=== PATIENT | female | born 1935 | race Caucasian/White ===

== ENCOUNTER 2024-03-03 10:35 | Emergency (ER) | payer MEDICARE, SELFPAY ==
--- NOTE | ~2024-03-03 | XR_ITS ---
Clinical Indication: Cough PA and lateral views of the chest: Comparison: None Findings: The lungs are clear, without evidence of focal consolidation or pleural effusion. Possible COPD. Cardiomediastinal silhouette is within normal limits. Bones and soft tissues are unremarkable. Impression: Clear lungs. Possible COPD. Reviewed, dictated and finalized at location . END ENGINEER Impression: Clear lungs. Possible COPD.
[2024-03-03 10:59] VITALS: BP 138/52; PULSE 75; RESP 16; TEMP 36.4; O2SAT 96
--- NOTE | 2024-03-03 11:27 | ED.URI ---
HPI - URI/Sore Throat General Chief Complaint: Upper Respiratory Infection Stated Complaint: fever,sore throat,runny nose Time Seen by Provider: 03/03/24 11:27 Source: patient Mode of arrival: ambulatory Limitations: no limitations History of Present Illness HPI Narrative: 89 yo F presents with c/o sneezing, congestion, cough, fatigue for 4 days. Feels feverish. Some SOB with exertion. Concerned she may have pneumonia. All systems reviewed and negative except as noted above. Related Data Home Medications Medication Instructions Recorded Confirmed amlodipine 10 mg tablet 10 mg PO DAILY 03/03/24 03/03/24 atorvastatin 20 mg tablet 20 mg PO DAILY 03/03/24 03/03/24 clorazepate dipotassium 7.5 mg 7.5 mg PO TID 03/03/24 03/03/24 tablet levetiracetam 750 mg tablet 750 mg PO BID 03/03/24 03/03/24 metoprolol tartrate 50 mg tablet 50 mg PO DAILY 03/03/24 03/03/24 pyridostigmine bromide 60 mg tablet 120 mg PO TID 03/03/24 03/03/24 Allergies Allergy/AdvReac Type Severity Reaction Status Date / Time Sulfa (Sulfonamide Allergy Severe Anaphylactic Verified 03/03/24 11:12 Antibiotics) Shock Iodinated Contrast Media Allergy Unknown Unknown Verified 03/03/24 11:12 Review of Systems Review of Systems: CONSTITUTIONAL: Denies fever, chills, or sweats. EYES: Denies visual changes, redness, or discharge. ENT: Reports rhinorrhea, congestion. Denies sore throat, or otalgia. CARDIOVASCULAR: Denies chest pain, palpitations, or edema. RESPIRATORY: reports cough and dyspnea with exertion. GASTROINTESTINAL: Denies abdominal pain, nausea, vomiting, or diarrhea. GENITOURINARY: Denies dysuria or hematuria. SKIN: Denies rash or itching. MUSCULOSKELETAL: Denies back pain, joint pain, or myalgia. NEUROLOGIC: Denies headache, numbness, or weakness. PSYCHIATRIC: Denies anxiety or depression. All other systems reviewed are negative, except as documented in HPI. PMFSH Comments At time of signature, agree with nursing past medical, surgical, social and family history. There is no relevant family history pertinent to the presenting complaint. Exam Narrative: GENERAL: This is a well-nourished, well-developed patient, in no apparent distress. HEAD: normocephalic, atraumatic. EYES: PERRL. Sclera clear/white. Vision is grossly intact. EARS: External ears normal, auditory canals clear and without drainage, TMs normal without perforation. Hearing grossly intact. NOSE: External nose normal with mild congestion, clear nasal drainage THROAT: Mucous membranes moist, posterior pharynx clear. NECK: Neck supple, non-tender without lymphadenopathy, masses or thyromegaly. CARDIOVASCULAR: Regular rate and rhythm without murmurs, gallops, or rubs. RESPIRATORY: mildly decreased throughout all lung nash. Breath sounds equal bilaterally. No wheezes, rales, or rhonchi. SKIN: warm, Dry, intact with no suspicious lesions or rash, good texture and turgor. NEURO: awake, alert, and oriented to person, place and time. There were no obvious focal neurologic abnormalities. EXTREMITIES: No joint tenderness, effusion, or edema noted. Course Course Level of Care: Express Care Visit Vital Signs Vital signs: Vital Signs Temperature 36.4 C L 03/03/24 10:59 Pulse Rate 75 03/03/24 10:59 Respiratory Rate 16 03/03/24 10:59 Blood Pressure 138/52 L 03/03/24 10:59 Pulse Oximetry 96 03/03/24 10:59 Oxygen Delivery Room Air 03/03/24 10:59 Temperature 36.4 C L 03/03/24 10:59 Pulse Rate 75 03/03/24 10:59 Respiratory Rate 16 03/03/24 10:59 Blood Pressure 138/52 L 03/03/24 10:59 Pulse Oximetry 96 03/03/24 10:59 Oxygen Delivery Room Air 03/03/24 10:59 Reviewed MDM - URI/Sore Throat MDM Narrative Medical decision making narrative: chest x-ray negative for pneumonia. Patient well-appearing, no respiratory distress. Will treat patient with antibiotic due to comorbidities. Patient agrees with plan of care. Patient is aware of diagnosis, understands and agrees to treatment plan. Anticipatory guidance given. Patient agrees to follow-up as directed and is aware of reasons to seek care at the emergency department. Portions of this record may have been created with voice recognition software Differential Diagnosis Differential diagnosis: Likely upper respiratory infection, sinusitis, viral infection and influenza Imaging Data My impression: Agree with radiologist Radiologist's impression: Clinical Indication: Cough PA and lateral views of the chest: Comparison: None Findings: The lungs are clear, without evidence of focal consolidation or pleural effusion. Possible COPD. Cardiomediastinal silhouette is within normal limits. Bones and soft tissues are unremarkable. Impression: Clear lungs. Possible COPD. Discharge Plan Discharge Clinical Impression: Upper respiratory infection with cough and congestion Patient Disposition: Home, Self-Care Condition: Stable Instructions: Antibiotic Form, Upper Respiratory Infection (ED) Additional Instructions: Your chest x-ray was negative for pneumonia. The radiologist did mention on your chest x-ray that you have possible COPD. Discuss this further with your primary care physician. Take antibiotic as prescribed until gone. Taking [id number] medication to treat her symptoms such as Nasonex DM. Drink plenty of water and rest. Place a cool-mist humidifier in bedroom where you sleep. Follow-up with your primary care physician if symptoms are not improving. Prescriptions: New doxycycline hyclate 100 mg capsule 100 mg PO BID 7 Days Qty: 14 0RF No Action atorvastatin 20 mg tablet 20 mg PO DAILY amlodipine 10 mg tablet 10 mg PO DAILY pyridostigmine bromide 60 mg tablet 120 mg PO TID metoprolol tartrate 50 mg tablet 50 mg PO DAILY levetiracetam 750 mg tablet 750 mg PO BID clorazepate dipotassium 7.5 mg tablet 7.5 mg PO TID Follow-up/Referrals: PHYSICIAN NOT ON STAFF,NONSTAFF [Primary Care Provider] - Time of Disposition: 12:08
== END 2024-03-03 12:37 | disposition home or self-care (01) ==
PROVIDERS: Emergency Provider Nurse Practitioner Family
DX: J06.9 Acute upper respiratory infection, unspecified (principal); R05.9 Cough, unspecified; E78.00 Pure hypercholesterolemia, unspecified; I10 Essential (primary) hypertension; G70.00 Myasthenia gravis without (acute) exacerbation; Z85.3 Personal history of malignant neoplasm of breast; Z90.12 Acquired absence of left breast and nipple; Z86.73 Personal history of transient ischemic attack (TIA), and cerebral infarction without residual deficits
CPT/HCPCS: 71046; 99203; G0463

== ENCOUNTER 2024-12-27 18:11 | Inpatient (IN) | payer MEDICARE, SELFPAY ==
[2024-12-27] VITALS (39 sets, daily range): BP systolic 122–172; BP diastolic 50–85; PULSE 75–93; RESP 13–34; TEMP 36.8–37.3; O2SAT 95–100; BMI 25.5
--- NOTE | ~2024-12-27 | CT_ITS ---
CT HEAD NON-CONTRAST Clinical History: weakness, fall 2 days ago, [place] Comparison: None Technique: Unenhanced axial images skull base to vertex Coronal, sagittal reformats CT images acquired with automatic exposure control for dose reduction DLP: 605 mGy-cm Findings: Mild white matter changes, consistent with chronic microvascular ischemic disease. Sulci, ventricles: Unremarkable. No intracerebral hemorrhage. No evidence acute territorial infarct. No mass effect, midline shift. Bony calvarium intact. Visualized paranasal sinuses: Clear. Mastoid air cells: Clear. IMPRESSION: 1. No acute intracranial findings. Reviewed, dictated and finalized at location R.
--- NOTE | ~2024-12-27 | XR_ITS ---
Examination: XR chest 2V Clinical History: weakness, fevers Comparison: 03/03/2024 Technique: PA and Lateral Findings: Cardiomediastinal silhouette normal size and configuration. Lungs clear. Hyperinflation. No acute bony abnormality. IMPRESSION: 1. No acute cardiopulmonary findings. Reviewed, dictated and finalized at location R.
--- NOTE | ~2024-12-27 | US_ITS ---
Clinical History: CVA with right hemiparesis Examination: US carotid duplex BI Comparison: None Technique: Grayscale, color, duplex/spectral Doppler sonography carotid and vertebral arteries. Distal CCA and Peak ICA systolic velocities provided. Society of Radiologists in Ultrasound (SRU) consensus criteria utilized, indirectly assessing stenosis by velocities. Findings: Mild plaque Right side: CCA - 123 cm/sec. ICA - 108 cm/sec. ICA/CCA - 0.9 Left Side: CCA - 78 cm/sec. ICA - 80 cm/sec. ICA/CCA - 1.0 Normal antegrade flow measured bilateral vertebral arteries. IMPRESSION: 1. No hemodynamically significant ICA stenosis (i.e., if any stenosis, less than 50%). 2. Normal bilateral antegrade vertebral artery flow. Stenosis measured by Society of Radiologists in Ultrasound (SRU) criteria. Reviewed, dictated and finalized at location R. IMPRESSION: 1. No hemodynamically significant ICA stenosis (i.e., if any stenosis, less th an 50%). 2. Normal bilateral antegrade vertebral artery flow. Stenosis measured by Society of Radiologists in Ultrasound (SRU) criteria.
--- NOTE | 2024-12-27 18:20 | ECG_ITS ---
Test Date: 2024-12-27 18:29:23 Measurements Intervals Ker[place] Rate: 89 P: 33 CO: 141 QRS: 38 QRSD: 78 T: 36 QT: 338 QTc: 412 Interpretive Statements SINUS RHYTHM No previous ECG available for comparison Electronically Signed On 12-27-2024 20:27:43 CDT by Karey Franco M.D.
--- NOTE | 2024-12-27 18:54 | ED.WEAKNESS ---
HPI - Weakness General Chief complaint: Weakness <SAARH Hemphill Last Filed: 12/27/24 22:42> Stated complaint: weak, chills, fever <Ely Ford PA-C - Last Filed: 12/27/24 22:42> Time Seen by Provider: 12/27/24 18:15 <SARAH Hemphill Last Filed: 12/27/24 22:42> Source: patient <SARAH Hemphill Last Filed: 12/27/24 22:42> Mode of arrival: EMS <SARAH Hemphill Last Filed: 12/27/24 22:42> Limitations: no limitations <SARAH Hemphill Last Filed: 12/27/24 22:42> History of Present Illness HPI Narrative: Patient is an 89-year-old female who presents the ED via EMS with report of weakness. Patient reports she received her influenza vaccination last week at her PCP's office. Had been feeling fine initially, but began feeling increasingly weak over the past couple of days. States she feels as though she could not ambulate at times because her legs were so weak. She did have a fall 2 days ago. Denied injuring herself, but did slightly hit her head. Denied LOC. also reports having fever up to 101? F at home over the past 2 days and a rash with blisters across her left upper chest/neck. Has been taking Tylenol for the fever. Denies abdominal pain, nausea, vomiting, chest pain, difficulty breathing. <Ely Ford PA-C - Last Filed: 12/27/24 22:42> Related Data Home medications: Home Medications ?Medication ?Instructions ?Recorded ?Confirmed ?Last Taken ?Type amlodipine 10 mg tablet 10 mg PO DAILY 03/03/24 12/27/24 Unknown History atorvastatin 20 mg tablet 20 mg PO DAILY 03/03/24 12/27/24 Unknown History clorazepate dipotassium 7.5 mg 7.5 mg PO TID 03/03/24 12/27/24 Unknown History tablet levetiracetam 750 mg tablet 750 mg PO BID 03/03/24 12/27/24 Unknown History metoprolol tartrate 50 mg tablet 50 mg PO DAILY 03/03/24 12/28/24 Unknown History pyridostigmine bromide 60 mg tablet 120 mg PO TID 03/03/24 12/27/24 Unknown History calcium 500 mg (as 1 tablet PO DAILY 12/27/24 12/28/24 Unknown History carbonate)-vitamin D3 10 mcg (400 unit) tablet (O[place] Calcium-Vitamin D3) loratadine 10 mg capsule (Allergy 10 mg PO DAILY 12/28/24 12/28/24 Unknown History Relief (loratadine)) omeprazole 20 mg capsule,delayed 20 mg PO DAILY 12/28/24 12/28/24 Unknown History release <Ely Ford PA-C - Last Filed: 12/27/24 22:42> Allergies/Adverse reactions: Allergies Allergy/AdvReac Type Severity Reaction Status Date / Time Sulfa (Sulfonamide Allergy Severe Anaphylactic Verified 12/28/24 04:59 Antibiotics) Shock Iodinated Contrast Media Allergy Unknown Unknown Verified 12/28/24 04:59 <Ely Ford PA-C - Last Filed: 12/27/24 22:42> Review of Systems Review of Systems: All systems reviewed & are unremarkable except as noted in HPI. <Ely Ford PA-C - Last Filed: 12/27/24 22:42> All systems reviewed & are unremarkable except as noted in HPI and below <Ely Ford PA-C - Last Filed: 12/27/24 22:42> [facility] Past Medical History Medical History: Medical History (Updated 12/28/24 @ 02:31 by Micaela Felder APRN) Anxiety Seizure disorder CVA (cerebral vascular accident) Breast cancer Myasthenia gravis Hyperlipidemia Hypertension <SARAH Hemphill Last Filed: 12/27/24 22:42> Surgical History Surgical History: Surgical History (Updated 12/28/24 @ 02:11 by Micaela Felder APRN) History of tonsillectomy and adenoidectomy H/O: hysterectomy History of cataract extraction History of appendectomy H/O mastectomy Left breast <Ely Ford PA-C - Last Filed: 12/27/24 22:42> Family History Family History: Family History Father Acute myocardial infarction Mother Acute myocardial infarction Congestive heart failure Diabetes mellitus Hypertension Daughter Colon cancer <Ely Ford PA-C - Last Filed: 12/27/24 22:42> Social History Social History: Social History (Updated 12/28/24 @ 02:12 by Micaela Felder APRN) Social History: She lives home alone. She had 1 adopted daughter and 1 biological son and both of them have passed in their 40s. Code status: Full code Smoking status: Never smoker Alcohol intake: never Substance use: never Lack of Transportation: No Lack of Food: Never True Current Housing: I Have Housing Concerned About Future Housing: No Difficulty Paying Gas/Electric Bills: No Difficulty Paying for Meds: No Currently Unemployed: No Education: High School Diploma/GED Difficulty w/ Childcare or Family Care: No Spiritual care concerns: No <SARAH Hemphill Last Filed: 12/27/24 22:42> Exam Narrative: GENERAL: Elderly, well-nourished, non-toxic, in no acute distress. HEAD: Normocephalic, atraumatic. EYES: PERRL/EOMI, conjunctiva clear NECK: Erythema with sharply demarcated borders to L sided neck, above clavicle, extending into L submandibular region and to L ear. Small scattered vesicular lesions. Focal TTP. No active drainage ENT: L ear pinna is inflamed and erythematous. No vesicles noted within L EAC. No Mckoy sign. RESPIRATORY: Airway patent, respirations nonlabored. Clear to auscultation bilaterally, no rales, rhonchi, wheezing. CARDIOVASCULAR: Regular rate and rhythm without murmurs, rubs, or gallops. MUSCULOSKELETAL: Moves all extremities. No gross deformities. SKIN: Warm, dry, normal color. NEURO: A&O X3. Speech clear. Cranial nerves II-XII grossly intact. Steady gait. No ataxic movements. No focal deficits. PSYCHIATRIC: Appropriate mood and affect. Normal interaction. <Ely Ford PA-C - Last Filed: 12/27/24 22:42> Course [facility]/PA Physician Supervision This visit was performed by both a physician and an APC. I performed all aspects of the MDM as documented. <Jerome Simon MD - Last Filed: 12/28/24 09:06> Vital Signs Vital signs: Vital Signs Pulse Rate 92 12/27/24 18:12 Respiratory Rate 22 H 12/27/24 18:12 Blood Pressure 154/61 H 12/27/24 18:12 Pulse Oximetry 97 12/27/24 18:12 Oxygen Delivery Room Air 12/27/24 18:12 Temperature 97.6 F 12/28/24 05:27 Pulse Rate 72 12/28/24 08:51 Respiratory Rate 20 12/28/24 05:27 Blood Pressure 122/44 L 12/28/24 05:27 Pulse Oximetry 97 12/28/24 05:27 Oxygen Delivery Room Air 12/27/24 23:58 <Ely Ford PA-C - Last Filed: 12/27/24 22:42> Vital Signs Pulse Rate 92 12/27/24 18:12 Respiratory Rate 22 H 12/27/24 18:12 Blood Pressure 154/61 H 12/27/24 18:12 Pulse Oximetry 97 12/27/24 18:12 Oxygen Delivery Room Air 12/27/24 18:12 Temperature 97.6 F 12/28/24 05:27 Pulse Rate 72 12/28/24 08:51 Respiratory Rate 20 12/28/24 05:27 Blood Pressure 122/44 L 12/28/24 05:27 Pulse Oximetry 97 12/28/24 05:27 Oxygen Delivery Room Air 12/27/24 23:58 <Jerome Simon MD - Last Filed: 12/28/24 09:06> MDM - Weakness MDM Narrative Medical decision making narrative: Rash on left-sided neck on exam appears consistent with herpes zoster. Will treat for such. Started on valacyclovir in the ED. Laboratory studies with marked leukocytosis of 20.8. Neutrophil predominance. 4% bands. CMP with sodium of 127. No records to compare to. Fluids initiated. Lactic acid within normal range at 1.4. Kidney function is stable. Otherwise stable electrolytes. EKG without ischemic changes. Troponin undetectable. Viral swabs are negative. UA with positive nitrate, but without other significant signs of infection. CT brain is clear. Chest x-ray is clear. Given marked leukocytosis, will also cover for possible superimposed cellulitic infection with cefazolin. Blood cultures obtained. Will admit to hospitalist service for continued evaluation of shingles, cellulitis, weakness. Discussed case with Micaela Felder [facility] hospitalist, accepted patient for admission. Patient in agreement. <Ely Ford PA-C - Last Filed: 12/27/24 22:42> Medical Records Attestation: I reviewed the patient's medical records. <Ely Ford PA-C - Last Filed: 12/27/24 22:42> Lab Data Attestation: I reviewed the patient's lab results. <Ely Ford PA-C - Last Filed: 12/27/24 22:42> Result diagrams: 12/27/24 18:44 12/28/24 05:03 <SARAH Hemphill Last Filed: 12/27/24 22:42> Labs: Lab Results 12/27/24 12/27/24 12/27/24 Range/Units 18:44 18:44 18:44 WBC 20.8 H (4.5-10.0) K/mm3 RBC 4.31 (4.2-5.4) M/mm3 Hgb 14.1 (12.0-15.0) g/dL Hct 41.3 (37.0-47.0) % MCV 95.8 (80-100) fl MCH 32.7 (26-34) pg MCHC 34.1 (32-36) g/dl RDW 12.6 (11.5-14.5) % Plt Count 215 (150-375) k/mm3 MPV 9.2 (7.4-10.4) fl Immature Gran % (Auto) Not Reportable Neut % (Auto) Not Reportable Lymph % (Auto) Not Reportable [place] % (Auto) Not Reportable Eos % (Auto) Not Reportable Baso % (Auto) Not Reportable Lymph # (Auto) Not Reportable [place] # (Auto) Not Reportable Eos # (Auto) Not Reportable Baso # (Auto) Not Reportable Abs Immat Gran (auto) Not Reportable Absolute Neuts (auto) Not Reportable Absolute Nucleated RBC Not Reportable Total Counted 100 Neutrophils % (Manual) 86 H (46-73) % Band Neutrophils % 4 (0-6) % Lymphocytes % (Manual) 5.0 L (18-44) % Monocytes % (Manual) 5 (3-9) % Nucleated RBC % Not Reportable Abs Neuts (Manual) 18.72 H (1.3-6.7) K/mm3 Abs Lymphs (Manual) 1.04 L (1.1-4.5) K/mm3 Abs Monocytes (Manual) 1.04 H (0.1-0.90) K/mm3 Platelet Estimate Adequate (Adequate) Schistocytes None seen PT 12.9 (11.1-14.7) Seconds INR 1.0 APTT 24.7 (22.3-36.8) Seconds Sodium Cancelled 127 L Potassium Cancelled 4.1 Chloride Cancelled Carbon Dioxide Anion Gap BUN Creatinine Estim Creat Clear Calc Estimated GFR Glucose Lactic Acid (0.7-2.0) mmol/L Calcium Total Bilirubin AST ALT Alkaline Phosphatase Troponin I (0.000-0.034) ng/mL Total Protein Albumin Urine Color (Yellow) Urine Appearance (Clear) Urine pH (5.0-9.0) Ur Specific [place] (1.001-1.035) Urine Protein (Negative) mg/dL Urine Glucose (UA) (Negative) mg/dL Urine Ketones (Negative) mg/dL Ur Blood (Man) (Negative) Urine Nitrate (Negative) Urine Bilirubin (Negative) Urine Urobilinogen (<2.0) mg/dL Add Ur Microanalysis Leukocyte Esterase Rfl (Negative) JEN/UL Urine RBC (0-2) /hpf Urine WBC (0-3) /hpf Ur Squamous Epith Cells (Few) /hpf Urine Bacteria /hpf Urine Casts Influenza A (RT-PCR) (Negative) Influenza B (RT-PCR) (Negative) RSV (RT-PCR) (Negative) SARS-CoV-2 RNA (RT-PCR) (Negative) 12/27/24 12/27/24 12/27/24 Range/Units 18:44 18:44 18:44 WBC (4.5-10.0) K/mm3 RBC (4.2-5.4) M/mm3 Hgb (12.0-15.0) g/dL Hct (37.0-47.0) % MCV (80-100) fl MCH (26-34) pg MCHC (32-36) g/dl RDW (11.5-14.5) % Plt Count (150-375) k/mm3 MPV (7.4-10.4) fl Immature Gran % (Auto) Neut % (Auto) Lymph % (Auto) [place] % (Auto) Eos % (Auto) Baso % (Auto) Lymph # (Auto) [place] # (Auto) Eos # (Auto) Baso # (Auto) Abs Immat Gran (auto) Absolute Neuts (auto) Absolute Nucleated RBC Total Counted Neutrophils % (Manual) (46-73) % Band Neutrophils % (0-6) % Lymphocytes % (Manual) (18-44) % Monocytes % (Manual) (3-9) % Nucleated RBC % Abs Neuts (Manual) (1.3-6.7) K/mm3 Abs Lymphs (Manual) (1.1-4.5) K/mm3 Abs Monocytes (Manual) (0.1-0.90) K/mm3 Platelet Estimate (Adequate) Schistocytes PT (11.1-14.7) Seconds INR APTT (22.3-36.8) Seconds Sodium Potassium Chloride 100 Carbon Dioxide Cancelled 25 Anion Gap Cancelled 2 L BUN Cancelled Creatinine Estim Creat Clear Calc Estimated GFR Glucose Lactic Acid (0.7-2.0) mmol/L Calcium Total Bilirubin AST ALT Alkaline Phosphatase Troponin I (0.000-0.034) ng/mL Total Protein Albumin Urine Color (Yellow) Urine Appearance (Clear) Urine pH (5.0-9.0) Ur Specific [place] (1.001-1.035) Urine Protein (Negative) mg/dL Urine Glucose (UA) (Negative) mg/dL Urine Ketones (Negative) mg/dL Ur Blood (Man) (Negative) Urine Nitrate (Negative) Urine Bilirubin (Negative) Urine Urobilinogen (<2.0) mg/dL Add Ur Microanalysis Leukocyte Esterase Rfl (Negative) JEN/UL Urine RBC (0-2) /hpf Urine WBC (0-3) /hpf Ur Squamous Epith Cells (Few) /hpf Urine Bacteria /hpf Urine Casts Influenza A (RT-PCR) (Negative) Influenza B (RT-PCR) (Negative) RSV (RT-PCR) (Negative) SARS-CoV-2 RNA (RT-PCR) (Negative) 12/27/24 12/27/24 12/27/24 Range/Units 18:44 18:44 18:44 WBC (4.5-10.0) K/mm3 RBC (4.2-5.4) M/mm3 Hgb (12.0-15.0) g/dL Hct (37.0-47.0) % MCV (80-100) fl MCH (26-34) pg MCHC (32-36) g/dl RDW (11.5-14.5) % Plt Count (150-375) k/mm3 MPV (7.4-10.4) fl Immature Gran % (Auto) Neut % (Auto) Lymph % (Auto) [place] % (Auto) Eos % (Auto) Baso % (Auto) Lymph # (Auto) [place] # (Auto) Eos # (Auto) Baso # (Auto) Abs Immat Gran (auto) Absolute Neuts (auto) Absolute Nucleated RBC Total Counted Neutrophils % (Manual) (46-73) % Band Neutrophils % (0-6) % Lymphocytes % (Manual) (18-44) % Monocytes % (Manual) (3-9) % Nucleated RBC % Abs Neuts (Manual) (1.3-6.7) K/mm3 Abs Lymphs (Manual) (1.1-4.5) K/mm3 Abs Monocytes (Manual) (0.1-0.90) K/mm3 Platelet Estimate (Adequate) Schistocytes PT (11.1-14.7) Seconds INR APTT (22.3-36.8) Seconds Sodium Potassium Chloride Carbon Dioxide Anion Gap BUN 10 Creatinine Cancelled 0.84 Estim Creat Clear Calc Cancelled 33 Estimated GFR Cancelled Glucose Lactic Acid (0.7-2.0) mmol/L Calcium Total Bilirubin AST ALT Alkaline Phosphatase Troponin I (0.000-0.034) ng/mL Total Protein Albumin Urine Color (Yellow) Urine Appearance (Clear) Urine pH (5.0-9.0) Ur Specific [place] (1.001-1.035) Urine Protein (Negative) mg/dL Urine Glucose (UA) (Negative) mg/dL Urine Ketones (Negative) mg/dL Ur Blood (Man) (Negative) Urine Nitrate (Negative) Urine Bilirubin (Negative) Urine Urobilinogen (<2.0) mg/dL Add Ur Microanalysis Leukocyte Esterase Rfl (Negative) JEN/UL Urine RBC (0-2) /hpf Urine WBC (0-3) /hpf Ur Squamous Epith Cells (Few) /hpf Urine Bacteria /hpf Urine Casts Influenza A (RT-PCR) (Negative) Influenza B (RT-PCR) (Negative) RSV (RT-PCR) (Negative) SARS-CoV-2 RNA (RT-PCR) (Negative) 12/27/24 12/27/24 12/27/24 Range/Units 18:44 18:44 18:44 WBC (4.5-10.0) K/mm3 RBC (4.2-5.4) M/mm3 Hgb (12.0-15.0) g/dL Hct (37.0-47.0) % MCV (80-100) fl MCH (26-34) pg MCHC (32-36) g/dl RDW (11.5-14.5) % Plt Count (150-375) k/mm3 MPV (7.4-10.4) fl Immature Gran % (Auto) Neut % (Auto) Lymph % (Auto) [place] % (Auto) Eos % (Auto) Baso % (Auto) Lymph # (Auto) [place] # (Auto) Eos # (Auto) Baso # (Auto) Abs Immat Gran (auto) Absolute Neuts (auto) Absolute Nucleated RBC Total Counted Neutrophils % (Manual) (46-73) % Band Neutrophils % (0-6) % Lymphocytes % (Manual) (18-44) % Monocytes % (Manual) (3-9) % Nucleated RBC % Abs Neuts (Manual) (1.3-6.7) K/mm3 Abs Lymphs (Manual) (1.1-4.5) K/mm3 Abs Monocytes (Manual) (0.1-0.90) K/mm3 Platelet Estimate (Adequate) Schistocytes PT (11.1-14.7) Seconds INR APTT (22.3-36.8) Seconds Sodium Potassium Chloride Carbon Dioxide Anion Gap BUN Creatinine Estim Creat Clear Calc Estimated GFR > 60 Glucose Cancelled 124 H Lactic Acid (0.7-2.0) mmol/L Calcium Cancelled 9.0 Total Bilirubin Cancelled AST ALT Alkaline Phosphatase Troponin I (0.000-0.034) ng/mL Total Protein Albumin Urine Color (Yellow) Urine Appearance (Clear) Urine pH (5.0-9.0) Ur Specific [place] (1.001-1.035) Urine Protein (Negative) mg/dL Urine Glucose (UA) (Negative) mg/dL Urine Ketones (Negative) mg/dL Ur Blood (Man) (Negative) Urine Nitrate (Negative) Urine Bilirubin (Negative) Urine Urobilinogen (<2.0) mg/dL Add Ur Microanalysis Leukocyte Esterase Rfl (Negative) JEN/UL Urine RBC (0-2) /hpf Urine WBC (0-3) /hpf Ur Squamous Epith Cells (Few) /hpf Urine Bacteria /hpf Urine Casts Influenza A (RT-PCR) (Negative) Influenza B (RT-PCR) (Negative) RSV (RT-PCR) (Negative) SARS-CoV-2 RNA (RT-PCR) (Negative) 12/27/24 12/27/24 12/27/24 Range/Units 18:44 18:44 18:44 WBC (4.5-10.0) K/mm3 RBC (4.2-5.4) M/mm3 Hgb (12.0-15.0) g/dL Hct (37.0-47.0) % MCV (80-100) fl MCH (26-34) pg MCHC (32-36) g/dl RDW (11.5-14.5) % Plt Count (150-375) k/mm3 MPV (7.4-10.4) fl Immature Gran % (Auto) Neut % (Auto) Lymph % (Auto) [place] % (Auto) Eos % (Auto) Baso % (Auto) Lymph # (Auto) [place] # (Auto) Eos # (Auto) Baso # (Auto) Abs Immat Gran (auto) Absolute Neuts (auto) Absolute Nucleated RBC Total Counted Neutrophils % (Manual) (46-73) % Band Neutrophils % (0-6) % Lymphocytes % (Manual) (18-44) % Monocytes % (Manual) (3-9) % Nucleated RBC % Abs Neuts (Manual) (1.3-6.7) K/mm3 Abs Lymphs (Manual) (1.1-4.5) K/mm3 Abs Monocytes (Manual) (0.1-0.90) K/mm3 Platelet Estimate (Adequate) Schistocytes PT (11.1-14.7) Seconds INR APTT (22.3-36.8) Seconds Sodium Potassium Chloride Carbon Dioxide Anion Gap BUN Creatinine Estim Creat Clear Calc Estimated GFR Glucose Lactic Acid (0.7-2.0) mmol/L Calcium Total Bilirubin 1.0 AST Cancelled 45 H ALT Cancelled 21 Alkaline Phosphatase Cancelled Troponin I (0.000-0.034) ng/mL Total Protein Albumin Urine Color (Yellow) Urine Appearance (Clear) Urine pH (5.0-9.0) Ur Specific [place] (1.001-1.035) Urine Protein (Negative) mg/dL Urine Glucose (UA) (Negative) mg/dL Urine Ketones (Negative) mg/dL Ur Blood (Man) (Negative) Urine Nitrate (Negative) Urine Bilirubin (Negative) Urine Urobilinogen (<2.0) mg/dL Add Ur Microanalysis Leukocyte Esterase Rfl (Negative) JEN/UL Urine RBC (0-2) /hpf Urine WBC (0-3) /hpf Ur Squamous Epith Cells (Few) /hpf Urine Bacteria /hpf Urine Casts Influenza A (RT-PCR) (Negative) Influenza B (RT-PCR) (Negative) RSV (RT-PCR) (Negative) SARS-CoV-2 RNA (RT-PCR) (Negative) 12/27/24 12/27/24 12/27/24 Range/Units 18:44 18:44 18:44 WBC (4.5-10.0) K/mm3 RBC (4.2-5.4) M/mm3 Hgb (12.0-15.0) g/dL Hct (37.0-47.0) % MCV (80-100) fl MCH (26-34) pg MCHC (32-36) g/dl RDW (11.5-14.5) % Plt Count (150-375) k/mm3 MPV (7.4-10.4) fl Immature Gran % (Auto) Neut % (Auto) Lymph % (Auto) [place] % (Auto) Eos % (Auto) Baso % (Auto) Lymph # (Auto) [place] # (Auto) Eos # (Auto) Baso # (Auto) Abs Immat Gran (auto) Absolute Neuts (auto) Absolute Nucleated RBC Total Counted Neutrophils % (Manual) (46-73) % Band Neutrophils % (0-6) % Lymphocytes % (Manual) (18-44) % Monocytes % (Manual) (3-9) % Nucleated RBC % Abs Neuts (Manual) (1.3-6.7) K/mm3 Abs Lymphs (Manual) (1.1-4.5) K/mm3 Abs Monocytes (Manual) (0.1-0.90) K/mm3 Platelet Estimate (Adequate) Schistocytes PT (11.1-14.7) Seconds INR APTT (22.3-36.8) Seconds Sodium Potassium Chloride Carbon Dioxide Anion Gap BUN Creatinine Estim Creat Clear Calc Estimated GFR Glucose Lactic Acid (0.7-2.0) mmol/L Calcium Total Bilirubin AST ALT Alkaline Phosphatase 88 Troponin I < 0.012 (0.000-0.034) ng/mL Total Protein Cancelled 7.2 Albumin Cancelled 4.2 Urine Color (Yellow) Urine Appearance (Clear) Urine pH (5.0-9.0) Ur Specific [place] (1.001-1.035) Urine Protein (Negative) mg/dL Urine Glucose (UA) (Negative) mg/dL Urine Ketones (Negative) mg/dL Ur Blood (Man) (Negative) Urine Nitrate (Negative) Urine Bilirubin (Negative) Urine Urobilinogen (<2.0) mg/dL Add Ur Microanalysis Leukocyte Esterase Rfl (Negative) JEN/UL Urine RBC (0-2) /hpf Urine WBC (0-3) /hpf Ur Squamous Epith Cells (Few) /hpf Urine Bacteria /hpf Urine Casts Influenza A (RT-PCR) (Negative) Influenza B (RT-PCR) (Negative) RSV (RT-PCR) (Negative) SARS-CoV-2 RNA (RT-PCR) (Negative) 12/27/24 12/27/24 12/27/24 Range/Units 19:16 19:23 21:44 WBC (4.5-10.0) K/mm3 RBC (4.2-5.4) M/mm3 Hgb (12.0-15.0) g/dL Hct (37.0-47.0) % MCV (80-100) fl MCH (26-34) pg MCHC (32-36) g/dl RDW (11.5-14.5) % Plt Count (150-375) k/mm3 MPV (7.4-10.4) fl Immature Gran % (Auto) Neut % (Auto) Lymph % (Auto) [place] % (Auto) Eos % (Auto) Baso % (Auto) Lymph # (Auto) [place] # (Auto) Eos # (Auto) Baso # (Auto) Abs Immat Gran (auto) Absolute Neuts (auto) Absolute Nucleated RBC Total Counted Neutrophils % (Manual) (46-73) % Band Neutrophils % (0-6) % Lymphocytes % (Manual) (18-44) % Monocytes % (Manual) (3-9) % Nucleated RBC % Abs Neuts (Manual) (1.3-6.7) K/mm3 Abs Lymphs (Manual) (1.1-4.5) K/mm3 Abs Monocytes (Manual) (0.1-0.90) K/mm3 Platelet Estimate (Adequate) Schistocytes PT (11.1-14.7) Seconds INR APTT (22.3-36.8) Seconds Sodium Potassium Chloride Carbon Dioxide Anion Gap BUN Creatinine Estim Creat Clear Calc Estimated GFR Glucose Lactic Acid 1.4 (0.7-2.0) mmol/L Calcium Total Bilirubin AST ALT Alkaline Phosphatase Troponin I (0.000-0.034) ng/mL Total Protein Albumin Urine Color Yellow (Yellow) Urine Appearance Clear (Clear) Urine pH 5.5 (5.0-9.0) Ur Specific [place] 1.018 (1.001-1.035) Urine Protein Trace (Negative) mg/dL Urine Glucose (UA) Negative (Negative) mg/dL Urine Ketones 1+ H (Negative) mg/dL Ur Blood (Man) Negative (Negative) Urine Nitrate Positive H (Negative) Urine Bilirubin Negative (Negative) Urine Urobilinogen 0.2 (<2.0) mg/dL Add Ur Microanalysis Reviewed Leukocyte Esterase Rfl 2+ H (Negative) JEN/UL Urine RBC 0-2 (0-2) /hpf Urine WBC 0-5 (0-3) /hpf Ur Squamous Epith Cells None seen (Few) /hpf Urine Bacteria None seen /hpf Urine Casts 3-5 Influenza A (RT-PCR) Negative (Negative) Influenza B (RT-PCR) Negative (Negative) RSV (RT-PCR) Negative (Negative) SARS-CoV-2 RNA (RT-PCR) Negative (Negative) <Ely Ford PA-C - Last Filed: 12/27/24 22:42> Lab Results 12/27/24 12/27/24 12/27/24 Range/Units 18:44 18:44 18:44 WBC 20.8 H (4.5-10.0) K/mm3 RBC 4.31 (4.2-5.4) M/mm3 Hgb 14.1 (12.0-15.0) g/dL Hct 41.3 (37.0-47.0) % MCV 95.8 (80-100) fl MCH 32.7 (26-34) pg MCHC 34.1 (32-36) g/dl RDW 12.6 (11.5-14.5) % Plt Count 215 (150-375) k/mm3 MPV 9.2 (7.4-10.4) fl Immature Gran % (Auto) Not Reportable Neut % (Auto) Not Reportable Lymph % (Auto) Not Reportable [place] % (Auto) Not Reportable Eos % (Auto) Not Reportable Baso % (Auto) Not Reportable Lymph # (Auto) Not Reportable [place] # (Auto) Not Reportable Eos # (Auto) Not Reportable Baso # (Auto) Not Reportable Abs Immat Gran (auto) Not Reportable Absolute Neuts (auto) Not Reportable Absolute Nucleated RBC Not Reportable Total Counted 100 Neutrophils % (Manual) 86 H (46-73) % Band Neutrophils % 4 (0-6) % Lymphocytes % (Manual) 5.0 L (18-44) % Monocytes % (Manual) 5 (3-9) % Nucleated RBC % Not Reportable Abs Neuts (Manual) 18.72 H (1.3-6.7) K/mm3 Abs Lymphs (Manual) 1.04 L (1.1-4.5) K/mm3 Abs Monocytes (Manual) 1.04 H (0.1-0.90) K/mm3 Platelet Estimate Adequate (Adequate) Schistocytes None seen PT 12.9 (11.1-14.7) Seconds INR 1.0 APTT 24.7 (22.3-36.8) Seconds Sodium Cancelled 127 L Potassium Cancelled 4.1 Chloride Cancelled Carbon Dioxide Anion Gap BUN Creatinine Estim Creat Clear Calc Estimated GFR Glucose Lactic Acid (0.7-2.0) mmol/L Calcium Total Bilirubin AST ALT Alkaline Phosphatase Troponin I (0.000-0.034) ng/mL Total Protein Albumin Urine Color (Yellow) Urine Appearance (Clear) Urine pH (5.0-9.0) Ur Specific [place] (1.001-1.035) Urine Protein (Negative) mg/dL Urine Glucose (UA) (Negative) mg/dL Urine Ketones (Negative) mg/dL Ur Blood (Man) (Negative) Urine Nitrate (Negative) Urine Bilirubin (Negative) Urine Urobilinogen (<2.0) mg/dL Add Ur Microanalysis Leukocyte Esterase Rfl (Negative) JEN/UL Urine RBC (0-2) /hpf Urine WBC (0-3) /hpf Ur Squamous Epith Cells (Few) /hpf Urine Bacteria /hpf Urine Casts Influenza A (RT-PCR) (Negative) Influenza B (RT-PCR) (Negative) RSV (RT-PCR) (Negative) SARS-CoV-2 RNA (RT-PCR) (Negative) 12/27/24 12/27/24 12/27/24 Range/Units 18:44 18:44 18:44 WBC (4.5-10.0) K/mm3 RBC (4.2-5.4) M/mm3 Hgb (12.0-15.0) g/dL Hct (37.0-47.0) % MCV (80-100) fl MCH (26-34) pg MCHC (32-36) g/dl RDW (11.5-14.5) % Plt Count (150-375) k/mm3 MPV (7.4-10.4) fl Immature Gran % (Auto) Neut % (Auto) Lymph % (Auto) [place] % (Auto) Eos % (Auto) Baso % (Auto) Lymph # (Auto) [place] # (Auto) Eos # (Auto) Baso # (Auto) Abs Immat Gran (auto) Absolute Neuts (auto) Absolute Nucleated RBC Total Counted Neutrophils % (Manual) (46-73) % Band Neutrophils % (0-6) % Lymphocytes % (Manual) (18-44) % Monocytes % (Manual) (3-9) % Nucleated RBC % Abs Neuts (Manual) (1.3-6.7) K/mm3 Abs Lymphs (Manual) (1.1-4.5) K/mm3 Abs Monocytes (Manual) (0.1-0.90) K/mm3 Platelet Estimate (Adequate) Schistocytes PT (11.1-14.7) Seconds INR APTT (22.3-36.8) Seconds Sodium Potassium Chloride 100 Carbon Dioxide Cancelled 25 Anion Gap Cancelled 2 L BUN Cancelled Creatinine Estim Creat Clear Calc Estimated GFR Glucose Lactic Acid (0.7-2.0) mmol/L Calcium Total Bilirubin AST ALT Alkaline Phosphatase Troponin I (0.000-0.034) ng/mL Total Protein Albumin Urine Color (Yellow) Urine Appearance (Clear) Urine pH (5.0-9.0) Ur Specific [place] (1.001-1.035) Urine Protein (Negative) mg/dL Urine Glucose (UA) (Negative) mg/dL Urine Ketones (Negative) mg/dL Ur Blood (Man) (Negative) Urine Nitrate (Negative) Urine Bilirubin (Negative) Urine Urobilinogen (<2.0) mg/dL Add Ur Microanalysis Leukocyte Esterase Rfl (Negative) JEN/UL Urine RBC (0-2) /hpf Urine WBC (0-3) /hpf Ur Squamous Epith Cells (Few) /hpf Urine Bacteria /hpf Urine Casts Influenza A (RT-PCR) (Negative) Influenza B (RT-PCR) (Negative) RSV (RT-PCR) (Negative) SARS-CoV-2 RNA (RT-PCR) (Negative) 12/27/24 12/27/24 12/27/24 Range/Units 18:44 18:44 18:44 WBC (4.5-10.0) K/mm3 RBC (4.2-5.4) M/mm3 Hgb (12.0-15.0) g/dL Hct (37.0-47.0) % MCV (80-100) fl MCH (26-34) pg MCHC (32-36) g/dl RDW (11.5-14.5) % Plt Count (150-375) k/mm3 MPV (7.4-10.4) fl Immature Gran % (Auto) Neut % (Auto) Lymph % (Auto) [place] % (Auto) Eos % (Auto) Baso % (Auto) Lymph # (Auto) [place] # (Auto) Eos # (Auto) Baso # (Auto) Abs Immat Gran (auto) Absolute Neuts (auto) Absolute Nucleated RBC Total Counted Neutrophils % (Manual) (46-73) % Band Neutrophils % (0-6) % Lymphocytes % (Manual) (18-44) % Monocytes % (Manual) (3-9) % Nucleated RBC % Abs Neuts (Manual) (1.3-6.7) K/mm3 Abs Lymphs (Manual) (1.1-4.5) K/mm3 Abs Monocytes (Manual) (0.1-0.90) K/mm3 Platelet Estimate (Adequate) Schistocytes PT (11.1-14.7) Seconds INR APTT (22.3-36.8) Seconds Sodium Potassium Chloride Carbon Dioxide Anion Gap BUN 10 Creatinine Cancelled 0.84 Estim Creat Clear Calc Cancelled 33 Estimated GFR Cancelled Glucose Lactic Acid (0.7-2.0) mmol/L Calcium Total Bilirubin AST ALT Alkaline Phosphatase Troponin I (0.000-0.034) ng/mL Total Protein Albumin Urine Color (Yellow) Urine Appearance (Clear) Urine pH (5.0-9.0) Ur Specific [place] (1.001-1.035) Urine Protein (Negative) mg/dL Urine Glucose (UA) (Negative) mg/dL Urine Ketones (Negative) mg/dL Ur Blood (Man) (Negative) Urine Nitrate (Negative) Urine Bilirubin (Negative) Urine Urobilinogen (<2.0) mg/dL Add Ur Microanalysis Leukocyte Esterase Rfl (Negative) JEN/UL Urine RBC (0-2) /hpf Urine WBC (0-3) /hpf Ur Squamous Epith Cells (Few) /hpf Urine Bacteria /hpf Urine Casts Influenza A (RT-PCR) (Negative) Influenza B (RT-PCR) (Negative) RSV (RT-PCR) (Negative) SARS-CoV-2 RNA (RT-PCR) (Negative) 12/27/24 12/27/24 12/27/24 Range/Units 18:44 18:44 18:44 WBC (4.5-10.0) K/mm3 RBC (4.2-5.4) M/mm3 Hgb (12.0-15.0) g/dL Hct (37.0-47.0) % MCV (80-100) fl MCH (26-34) pg MCHC (32-36) g/dl RDW (11.5-14.5) % Plt Count (150-375) k/mm3 MPV (7.4-10.4) fl Immature Gran % (Auto) Neut % (Auto) Lymph % (Auto) [place] % (Auto) Eos % (Auto) Baso % (Auto) Lymph # (Auto) [place] # (Auto) Eos # (Auto) Baso # (Auto) Abs Immat Gran (auto) Absolute Neuts (auto) Absolute Nucleated RBC Total Counted Neutrophils % (Manual) (46-73) % Band Neutrophils % (0-6) % Lymphocytes % (Manual) (18-44) % Monocytes % (Manual) (3-9) % Nucleated RBC % Abs Neuts (Manual) (1.3-6.7) K/mm3 Abs Lymphs (Manual) (1.1-4.5) K/mm3 Abs Monocytes (Manual) (0.1-0.90) K/mm3 Platelet Estimate (Adequate) Schistocytes PT (11.1-14.7) Seconds INR APTT (22.3-36.8) Seconds Sodium Potassium Chloride Carbon Dioxide Anion Gap BUN Creatinine Estim Creat Clear Calc Estimated GFR > 60 Glucose Cancelled 124 H Lactic Acid (0.7-2.0) mmol/L Calcium Cancelled 9.0 Total Bilirubin Cancelled AST ALT Alkaline Phosphatase Troponin I (0.000-0.034) ng/mL Total Protein Albumin Urine Color (Yellow) Urine Appearance (Clear) Urine pH (5.0-9.0) Ur Specific [place] (1.001-1.035) Urine Protein (Negative) mg/dL Urine Glucose (UA) (Negative) mg/dL Urine Ketones (Negative) mg/dL Ur Blood (Man) (Negative) Urine Nitrate (Negative) Urine Bilirubin (Negative) Urine Urobilinogen (<2.0) mg/dL Add Ur Microanalysis Leukocyte Esterase Rfl (Negative) JEN/UL Urine RBC (0-2) /hpf Urine WBC (0-3) /hpf Ur Squamous Epith Cells (Few) /hpf Urine Bacteria /hpf Urine Casts Influenza A (RT-PCR) (Negative) Influenza B (RT-PCR) (Negative) RSV (RT-PCR) (Negative) SARS-CoV-2 RNA (RT-PCR) (Negative) 12/27/24 12/27/24 12/27/24 Range/Units 18:44 18:44 18:44 WBC (4.5-10.0) K/mm3 RBC (4.2-5.4) M/mm3 Hgb (12.0-15.0) g/dL Hct (37.0-47.0) % MCV (80-100) fl MCH (26-34) pg MCHC (32-36) g/dl RDW (11.5-14.5) % Plt Count (150-375) k/mm3 MPV (7.4-10.4) fl Immature Gran % (Auto) Neut % (Auto) Lymph % (Auto) [place] % (Auto) Eos % (Auto) Baso % (Auto) Lymph # (Auto) [place] # (Auto) Eos # (Auto) Baso # (Auto) Abs Immat Gran (auto) Absolute Neuts (auto) Absolute Nucleated RBC Total Counted Neutrophils % (Manual) (46-73) % Band Neutrophils % (0-6) % Lymphocytes % (Manual) (18-44) % Monocytes % (Manual) (3-9) % Nucleated RBC % Abs Neuts (Manual) (1.3-6.7) K/mm3 Abs Lymphs (Manual) (1.1-4.5) K/mm3 Abs Monocytes (Manual) (0.1-0.90) K/mm3 Platelet Estimate (Adequate) Schistocytes PT (11.1-14.7) Seconds INR APTT (22.3-36.8) Seconds Sodium Potassium Chloride Carbon Dioxide Anion Gap BUN Creatinine Estim Creat Clear Calc Estimated GFR Glucose Lactic Acid (0.7-2.0) mmol/L Calcium Total Bilirubin 1.0 AST Cancelled 45 H ALT Cancelled 21 Alkaline Phosphatase Cancelled Troponin I (0.000-0.034) ng/mL Total Protein Albumin Urine Color (Yellow) Urine Appearance (Clear) Urine pH (5.0-9.0) Ur Specific [place] (1.001-1.035) Urine Protein (Negative) mg/dL Urine Glucose (UA) (Negative) mg/dL Urine Ketones (Negative) mg/dL Ur Blood (Man) (Negative) Urine Nitrate (Negative) Urine Bilirubin (Negative) Urine Urobilinogen (<2.0) mg/dL Add Ur Microanalysis Leukocyte Esterase Rfl (Negative) JEN/UL Urine RBC (0-2) /hpf Urine WBC (0-3) /hpf Ur Squamous Epith Cells (Few) /hpf Urine Bacteria /hpf Urine Casts Influenza A (RT-PCR) (Negative) Influenza B (RT-PCR) (Negative) RSV (RT-PCR) (Negative) SARS-CoV-2 RNA (RT-PCR) (Negative) 12/27/24 12/27/24 12/27/24 Range/Units 18:44 18:44 18:44 WBC (4.5-10.0) K/mm3 RBC (4.2-5.4) M/mm3 Hgb (12.0-15.0) g/dL Hct (37.0-47.0) % MCV (80-100) fl MCH (26-34) pg MCHC (32-36) g/dl RDW (11.5-14.5) % Plt Count (150-375) k/mm3 MPV (7.4-10.4) fl Immature Gran % (Auto) Neut % (Auto) Lymph % (Auto) [place] % (Auto) Eos % (Auto) Baso % (Auto) Lymph # (Auto) [place] # (Auto) Eos # (Auto) Baso # (Auto) Abs Immat Gran (auto) Absolute Neuts (auto) Absolute Nucleated RBC Total Counted Neutrophils % (Manual) (46-73) % Band Neutrophils % (0-6) % Lymphocytes % (Manual) (18-44) % Monocytes % (Manual) (3-9) % Nucleated RBC % Abs Neuts (Manual) (1.3-6.7) K/mm3 Abs Lymphs (Manual) (1.1-4.5) K/mm3 Abs Monocytes (Manual) (0.1-0.90) K/mm3 Platelet Estimate (Adequate) Schistocytes PT (11.1-14.7) Seconds INR APTT (22.3-36.8) Seconds Sodium Potassium Chloride Carbon Dioxide Anion Gap BUN Creatinine Estim Creat Clear Calc Estimated GFR Glucose Lactic Acid (0.7-2.0) mmol/L Calcium Total Bilirubin AST ALT Alkaline Phosphatase 88 Troponin I < 0.012 (0.000-0.034) ng/mL Total Protein Cancelled 7.2 Albumin Cancelled 4.2 Urine Color (Yellow) Urine Appearance (Clear) Urine pH (5.0-9.0) Ur Specific [place] (1.001-1.035) Urine Protein (Negative) mg/dL Urine Glucose (UA) (Negative) mg/dL Urine Ketones (Negative) mg/dL Ur Blood (Man) (Negative) Urine Nitrate (Negative) Urine Bilirubin (Negative) Urine Urobilinogen (<2.0) mg/dL Add Ur Microanalysis Leukocyte Esterase Rfl (Negative) JEN/UL Urine RBC (0-2) /hpf Urine WBC (0-3) /hpf Ur Squamous Epith Cells (Few) /hpf Urine Bacteria /hpf Urine Casts Influenza A (RT-PCR) (Negative) Influenza B (RT-PCR) (Negative) RSV (RT-PCR) (Negative) SARS-CoV-2 RNA (RT-PCR) (Negative) 12/27/24 12/27/24 12/27/24 Range/Units 19:16 19:23 21:44 WBC (4.5-10.0) K/mm3 RBC (4.2-5.4) M/mm3 Hgb (12.0-15.0) g/dL Hct (37.0-47.0) % MCV (80-100) fl MCH (26-34) pg MCHC (32-36) g/dl RDW (11.5-14.5) % Plt Count (150-375) k/mm3 MPV (7.4-10.4) fl Immature Gran % (Auto) Neut % (Auto) Lymph % (Auto) [place] % (Auto) Eos % (Auto) Baso % (Auto) Lymph # (Auto) [place] # (Auto) Eos # (Auto) Baso # (Auto) Abs Immat Gran (auto) Absolute Neuts (auto) Absolute Nucleated RBC Total Counted Neutrophils % (Manual) (46-73) % Band Neutrophils % (0-6) % Lymphocytes % (Manual) (18-44) % Monocytes % (Manual) (3-9) % Nucleated RBC % Abs Neuts (Manual) (1.3-6.7) K/mm3 Abs Lymphs (Manual) (1.1-4.5) K/mm3 Abs Monocytes (Manual) (0.1-0.90) K/mm3 Platelet Estimate (Adequate) Schistocytes PT (11.1-14.7) Seconds INR APTT (22.3-36.8) Seconds Sodium Potassium Chloride Carbon Dioxide Anion Gap BUN Creatinine Estim Creat Clear Calc Estimated GFR Glucose Lactic Acid 1.4 (0.7-2.0) mmol/L Calcium Total Bilirubin AST ALT Alkaline Phosphatase Troponin I (0.000-0.034) ng/mL Total Protein Albumin Urine Color Yellow (Yellow) Urine Appearance Clear (Clear) Urine pH 5.5 (5.0-9.0) Ur Specific [place] 1.018 (1.001-1.035) Urine Protein Trace (Negative) mg/dL Urine Glucose (UA) Negative (Negative) mg/dL Urine Ketones 1+ H (Negative) mg/dL Ur Blood (Man) Negative (Negative) Urine Nitrate Positive H (Negative) Urine Bilirubin Negative (Negative) Urine Urobilinogen 0.2 (<2.0) mg/dL Add Ur Microanalysis Reviewed Leukocyte Esterase Rfl 2+ H (Negative) JEN/UL Urine RBC 0-2 (0-2) /hpf Urine WBC 0-5 (0-3) /hpf Ur Squamous Epith Cells None seen (Few) /hpf Urine Bacteria None seen /hpf Urine Casts 3-5 Influenza A (RT-PCR) Negative (Negative) Influenza B (RT-PCR) Negative (Negative) RSV (RT-PCR) Negative (Negative) SARS-CoV-2 RNA (RT-PCR) Negative (Negative) <Jerome Simon MD - Last Filed: 12/28/24 09:06> Imaging Data Attestation: I personally reviewed and interpreted this imaging study as follows: <Ely Ford PA-C - Last Filed: 12/27/24 22:42> Radiologist's impression: ITS Impressions Chest X-Ray 12/27/24 19:06 IMPRESSION: 1. No acute cardiopulmonary findings. Head CT 12/27/24 19:12 IMPRESSION: 1. No acute intracranial findings. <Ely Ford PA-C - Last Filed: 12/27/24 22:42> ECG Data EKG #1: Attestation: I personally reviewed and interpreted this ECG as follows: <Ely Ford PA-C - Last Filed: 12/27/24 22:42> ECG completion date: 12/27/24 <Ely Ford PA-C - Last Filed: 12/27/24 22:42> ECG completion time: 18:29 <Ely Ford PA-C - Last Filed: 12/27/24 22:42> EKG Interpretation: normal rate (89), sinus rhythm and no ST changes <SARAH Hemphill Last Filed: 12/27/24 22:42> Discharge Plan Discharge Clinical Impression: Herpes zoster of neck, Cellulitis of neck, Hyponatremia, Generalized weakness <SARAH Hemphill Last Filed: 12/27/24 22:42> Patient Disposition: Still a Patient <SARAH Hemphill Last Filed: 12/27/24 22:42> Condition: Stable <SARAH Hemphill Last Filed: 12/27/24 22:42>
[2024-12-27 18:55] LABS: Hematocrit 41.3 % (37.0-47.0); Hemoglobin 14.1 g/dL (12.0-15.0); Mean Corpuscular HGB Conc 34.1 g/dl (32-36); Mean Corpuscular Hemoglobin 32.7 pg (26-34); Mean Corpuscular Volume 95.8 fl (80-100); Platelet Count Result 215 k/mm3 (150-375); Red Blood Count 4.31 M/mm3 (4.2-5.4); White Blood Count 20.8 K/mm3 (4.5-10.0)
[2024-12-27 19:04] LABS: INR 1.0; Partial Thromboplastin Time 24.7 Seconds (22.3-36.8); Prothrombin Time 12.9 Seconds (11.1-14.7)
[2024-12-27 19:07] LABS: Alanine Aminotransferase 21 U/L (6-35); Albumin Level 4.2 g/dL (3.5-5.1); Alkaline Phosphatase 88 U/L (38-126); Anion Gap 2 mmol/L (4-12); Aspartate Amino Transferase 45 U/L (14-36); Bilirubin,Total 1.0 mg/dL (0.2-1.3); Blood Urea Nitrogen 10 mg/dL (7-17); Calcium 9.0 mg/dL (8.4-10.2); Carbon Dioxide 25 mmol/L (22-30); Chloride 100 mmol/L (98-107); Estimated CRCL calculation 33 ml/min; Estimated Glomerular Filt Rate > 60; Glucose 124 mg/dL (65-110); Potassium 4.1 mmol/L (3.4-5.0); Sodium 127 mmol/L (137-145); Total Protein 7.2 g/dL (6.3-8.2)
[2024-12-27 19:18] LABS: Band Neutrophils Percent 4 % (0-6); Lymphocytes Absolute Manual 1.04 K/mm3 (1.1-4.5); Lymphocytes Percent Manual 5.0 % (18-44); Monocytes Absolute Manual 1.04 K/mm3 (0.1-0.90); Monocytes Percent Manual 5 % (3-9); Neutrophils Absolute Manual 18.72 K/mm3 (1.3-6.7); Neutrophils Percent Manual 86 % (46-73); Total Cells Counted 100
[2024-12-27 19:19] LABS: Schistocytes None Seen
[2024-12-27 19:23] LABS: Troponin I < 0.012 ng/mL (0.000-0.034)
[2024-12-27] MEDS: SODIUM CHLORIDE 0.9% IV 1,000 ML 999 ML IV CONT (19:28)
[2024-12-27] MEDS: ceFAZolin 1 GM in SODIUM CHLORIDE 0.9% IV 50 ML 100 ML IVPB (19:38)
[2024-12-27 20:03] LABS: Influenza A QL RT-PCR Negative (Negative); Influenza B QL RT-PCR Negative (Negative); RSV RNA, RT-PCR Negative (Negative); SARS-CoV-2 RNA PCR Negative (Negative)
[2024-12-27 22:04] LABS: Add Urine Microscopic? YES; Appearance Urine Clear (Clear); Glucose Urine UA Negative (Negative); Leukocyte Esterase Ur 2+ LEU/UL (Negative); Need Manual Microscopic Reviewed; Nitrate Urine Positive (Negative); Specific Grav Ur 1.018 (1.001-1.035)
--- NOTE | 2024-12-27 23:35 | ADMGEN ---
This patient, Paige Barillas, was admitted to Medical Room 248-. Patient/family oriented to hospital policies and general routines including ID bracelet, bed and alarms, visiting hours, pain management, procedures, bathroom and other care routines, personal items, smoking policy, room service/diet, and visiting hours. Information on how to activate the Rapid Response Team has been discussed. Patient/Family are encouraged to report perceived risks to care and to ask questions if they do not understand what they are told or what they should do.
[2024-12-27] MEDS: SODIUM CHLORIDE 0.9% IV 1,000 ML 75 ML IV CONT (23:47)
--- NOTE | 2024-12-28 01:30 | PM.IMHP ---
H&P: HPI History of Present Illness Date/Time: 12/28/24 01:30 Chief Complaint: Weakness Narrative: This is an 89-year-old female patient who came to the emergency room due to increased weakness. The patient initially felt that she was weak from receiving an influenza vaccine last week in her primary care doctor's office. She stated that she was too weak to ambulate appropriately. She does live home alone and she fell 2 days ago. She denied losing consciousness or hitting her head. She also self reported temperature of 101?. She also noticed a rash to the left side of her neck that radiated to her left jaw line and cheek. 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 Her head CT was read as no acute intracranial findings today. Her white count was noted to be 20.8. Neutrophil percentage 86%. Her sodium levels 127 today without any previous labs for comparison. Urinalysis shows 1+ ketones with positive urine nitrates and 2+ leukocyte esterase. Patient denies any urinary symptoms at this time. The patient was started on Ancef for possible cellulitis the left ear lobe. She was also started on Valtrex for herpes zoster and started on IV fluids. The patient is being admitted to observation status on the date of service of 12/28/2024. Review of Systems Constitutional: Constitutional: Reports as per HPI and Reports no additional constitutional complaints Eyes: Eyes: Reports as per HPI and Reports no additional eye complaints ENT: Reports system reviewed and no additional complaints, except as documented and Reports Normal hearing present Cardiovascular: Cardiovascular: Reports no additional cardiovascular complaints Respiratory: Respiratory: Reports as per HPI and Reports no additional respiratory complaints Gastrointestinal: Gastrointestinal: Reports as per HPI and Reports no additional gastrointestinal complaints Genitourinary: Genitourinary: Reports no additional female genitourinary complaints Musculoskeletal: Musculoskeletal: Reports no additional musculoskeletal complaints Integumentary/Breasts: Skin/Breast: Reports system reviewed and no additional complaints, except as docu Neurologic: Reports system reviewed and no additional complaints, except as documented and Reports Normal hearing present Psychiatric: Psychiatric: Reports no additional psychiatric complaints and Reports as per HPI Hematologic/Lymphatic: Hematologic/Lymphatic: Reports no additional hematologic/lymphatic complaints Allergic/Immunologic: Allergic/Immunologic: Reports no additional allergic/immunologic complaints PMFSH Past Medical History Medical History (Updated 12/28/24 @ 02:31 by Micaela Felder APRN) Anxiety Seizure disorder CVA (cerebral vascular accident) Breast cancer Myasthenia gravis Hyperlipidemia Hypertension Surgical History Surgical History (Updated 12/28/24 @ 02:11 by Micaela Felder APRN) History of tonsillectomy and adenoidectomy H/O: hysterectomy History of cataract extraction History of appendectomy H/O mastectomy Left breast Family History Family History Father Acute myocardial infarction Mother Acute myocardial infarction Congestive heart failure Diabetes mellitus Hypertension Daughter Colon cancer Social History Social History (Updated 12/28/24 @ 02:12 by Micaela Felder APRN) Social History: She lives home alone. She had 1 adopted daughter and 1 biological son and both of them have passed in their 40s. Code status: Full code Smoking status: Never smoker Alcohol intake: never Substance use: never Lack of Transportation: No Lack of Food: Never True Current Housing: I Have Housing Concerned About Future Housing: No Difficulty Paying Gas/Electric Bills: No Difficulty Paying for Meds: No Currently Unemployed: No Education: High School Diploma/GED Difficulty w/ Childcare or Family Care: No Spiritual care concerns: No Meds Home Medications and Allergies Home Medications ?Medication ?Instructions ?Recorded ?Confirmed ?Type amlodipine 10 mg tablet 10 mg PO DAILY 03/03/24 12/27/24 History atorvastatin 20 mg tablet 20 mg PO DAILY 03/03/24 12/27/24 History clorazepate dipotassium 7.5 mg 7.5 mg PO TID 03/03/24 12/27/24 History tablet levetiracetam 750 mg tablet 750 mg PO BID 03/03/24 12/27/24 History metoprolol tartrate 50 mg tablet 50 mg PO DAILY 03/03/24 12/28/24 History pyridostigmine bromide 60 mg tablet 120 mg PO TID 03/03/24 12/27/24 History calcium 500 mg (as 1 tablet PO DAILY 12/27/24 12/28/24 History carbonate)-vitamin D3 10 mcg (400 unit) tablet (Oyster Shell Calcium-Vitamin D3) loratadine 10 mg capsule (Allergy 10 mg PO DAILY 12/28/24 12/28/24 History Relief (loratadine)) omeprazole 20 mg capsule,delayed 20 mg PO DAILY 12/28/24 12/28/24 History release Allergies Allergy/AdvReac Type Severity Reaction Status Date / Time Sulfa (Sulfonamide Allergy Severe Anaphylactic Verified 12/27/24 18:16 Antibiotics) Shock Iodinated Contrast Media Allergy Unknown Unknown Verified 12/27/24 18:16 Vital Signs Vital Signs - 24 hr 12/27/24 18:12 12/27/24 18:52 12/27/24 19:11 Temperature Pulse Rate 92 87 78 Respiratory Rate 22 H 15 19 Blood Pressure 154/61 H Pulse Oximetry 97 97 100 Oxygen Delivery Room Air 12/27/24 19:13 12/27/24 19:15 12/27/24 19:17 Temperature Pulse Rate 86 82 81 Respiratory Rate 19 21 H 21 H Blood Pressure 145/58 H 155/50 H Pulse Oximetry 100 98 99 Oxygen Delivery 12/27/24 19:30 12/27/24 19:45 12/27/24 19:47 Temperature Pulse Rate 87 85 85 Respiratory Rate 13 19 22 H Blood Pressure 159/55 H Pulse Oximetry 99 98 Oxygen Delivery 12/27/24 20:00 12/27/24 20:02 12/27/24 20:15 Temperature Pulse Rate 85 88 89 Respiratory Rate 23 H 18 19 Blood Pressure 142/63 H Pulse Oximetry 97 98 97 Oxygen Delivery 12/27/24 20:17 12/27/24 20:30 12/27/24 20:31 Temperature Pulse Rate 90 87 90 Respiratory Rate 24 H 20 18 Blood Pressure 128/85 141/58 H Pulse Oximetry 97 97 96 Oxygen Delivery 12/27/24 20:45 12/27/24 20:47 12/27/24 21:00 Temperature Pulse Rate 82 82 83 Respiratory Rate 33 H 19 20 Blood Pressure 152/54 H Pulse Oximetry 98 97 Oxygen Delivery 12/27/24 21:02 12/27/24 21:10 12/27/24 21:15 Temperature 98.3 F Pulse Rate 82 88 Respiratory Rate 22 H 19 Blood Pressure 155/53 H Pulse Oximetry Oxygen Delivery 12/27/24 21:17 12/27/24 21:30 12/27/24 21:32 Temperature Pulse Rate 93 92 91 Respiratory Rate 26 H 19 24 H Blood Pressure 158/62 H 172/61 H Pulse Oximetry Oxygen Delivery 12/27/24 21:45 12/27/24 21:47 12/27/24 22:00 Temperature Pulse Rate 86 86 87 Respiratory Rate 20 19 14 Blood Pressure 156/71 H Pulse Oximetry Oxygen Delivery 12/27/24 22:02 12/27/24 22:15 12/27/24 22:17 Temperature Pulse Rate 81 79 81 Respiratory Rate 28 H 30 H 34 H Blood Pressure 143/62 H 138/51 L Pulse Oximetry 95 97 97 Oxygen Delivery 12/27/24 22:30 12/27/24 22:32 12/27/24 22:45 Temperature Pulse Rate 83 78 80 Respiratory Rate 25 H 27 H 31 H Blood Pressure 135/59 L Pulse Oximetry 100 97 99 Oxygen Delivery 12/27/24 22:47 12/27/24 23:00 12/27/24 23:01 Temperature Pulse Rate 76 78 79 Respiratory Rate 28 H 27 H 23 H Blood Pressure 129/58 L 135/56 L Pulse Oximetry 97 97 95 Oxygen Delivery 12/27/24 23:15 12/27/24 23:17 12/27/24 23:47 Temperature 99.2 F Pulse Rate 75 75 84 Respiratory Rate 22 H 33 H 18 Blood Pressure 122/63 141/53 H Pulse Oximetry 97 97 98 Oxygen Delivery 12/27/24 23:58 Temperature Pulse Rate Respiratory Rate Blood Pressure Pulse Oximetry Oxygen Delivery Room Air Exam Const: General: cooperative, healthy appearing, comfortable, no acute distress, well developed, awake, Physically active, average body habitus and well nourished Nutritional Appearance: average body habitus and well nourished Orientation/consciousness: oriented to person, oriented to place, oriented to time and patient oriented x3 Limitations: no limitations HENMT: Head: normal to inspection, No palpable skull fracture present, normocephalic, atraumatic and abrasion Ears: hearing grossly normal bilaterally Outer ear/TM images:  1. Erythema with tenderness and swelling to left outer ear Eyes: General: appearance normal, both eyes and all related structures Alignment and Position: alignment normal Periorbital: periorbital findings normal Eyelids: eyelids normal Neck: Neck: full ROM Chest: Chest palpation & inspection: normal inspection of the chest Resp: Effort & Inspection: normal respiratory effort Auscultation: clear to auscultation bilaterally Cardio: Palpation: normal PMI Rate: regular rate Rhythm: regular rhythm Heart sounds: S1 normal heart sound present and S2 normal heart sound present Peripheral pulses: Peripheral pulses 2+ throughout GI: Inspection: normal to inspection Percussion: Yes normal to percussion Auscultation: normal bowel sounds Rectal Exam: deferred : General: Yes no CVA tenderness Back/Spine/Pelvis: Back: no CVA tenderness Cervical Spine: cervical ROM normal Thoracic/Lumbar Spine: thoracic and lumbar spine normal to inspection Pelvis: no pain with anterior-posterior compression Skin: Rashes: rashes noted vesicles left earlobe distribution (Left neck and cheek erythema), surface and tender Hair: normal Nails: normal Neuro: General: oriented to person, oriented to place, oriented to time and patient oriented x3 Cranial nerves: Yes Equal, round and reactive pupils present and Yes Normal hearing present Cognition (Neuro): normal cognition Speech: normal speech Motor exam (neuro): 5/5 motor strength present throughout Sensory Exam: normal sensation Extrem: General: normal to inspection Right upper extremity: normal to inspection and shoulder/upper arm Left upper extremity: normal to inspection and shoulder/upper arm Right lower extremity: normal to inspection Left lower extremity: normal to inspection Psych: Appearance: grossly normal Mental Status: mental status grossly normal Speech and movement: Normal speech and movement present Affect: normal affect Attitude: cooperative Thought process: Normal thought process present Thought content: Yes Normal thought content present Insight: Good insight present (Psych) Judgement: Good judgement present (Psych) H&P: Results Labs Labs: Short CBC 12/27/24 Range/Units 18:44 WBC 20.8 H (4.5-10.0) K/mm3 Hgb 14.1 (12.0-15.0) g/dL Hct 41.3 (37.0-47.0) % Plt Count 215 (150-375) k/mm3 BMP 12/27/24 12/27/24 12/27/24 18:44 18:44 18:44 Sodium Cancelled 127 L Potassium Cancelled 4.1 Chloride Cancelled Carbon Dioxide BUN Creatinine Glucose Calcium 12/27/24 12/27/24 12/27/24 18:44 18:44 18:44 Sodium Potassium Chloride 100 Carbon Dioxide Cancelled 25 BUN Cancelled 10 Creatinine Cancelled Glucose Calcium 12/27/24 12/27/24 12/27/24 18:44 18:44 18:44 Sodium Potassium Chloride Carbon Dioxide BUN Creatinine 0.84 Glucose Cancelled 124 H Calcium Cancelled 9.0 Cardiac Enzymes 12/27/24 Range/Units 18:44 Troponin I < 0.012 (0.000-0.034) ng/mL Liver Function 12/27/24 12/27/24 12/27/24 Range/Units 18:44 18:44 18:44 Total Bilirubin Cancelled 1.0 AST Cancelled 45 H ALT Cancelled Alkaline Phosphatase Albumin 12/27/24 12/27/24 12/27/24 Range/Units 18:44 18:44 18:44 Total Bilirubin AST ALT 21 Alkaline Phosphatase Cancelled 88 Albumin Cancelled 4.2 Urine 12/27/24 Range/Units 21:44 Urine Color Yellow (Yellow) Urine Appearance Clear (Clear) Urine pH 5.5 (5.0-9.0) Ur Specific [place] 1.018 (1.001-1.035) Urine Protein Trace (Negative) mg/dL Urine Glucose (UA) Negative (Negative) mg/dL ECG Interpretation: Test Date: 2024-12-27 18:29:23 Measurements Intervals [place] Rate: 89 P: 33 NE: 141 QRS: 38 QRSD: 78 T: 36 QT: 338 QTc: 412 Interpretive Statements SINUS RHYTHM No previous ECG available for comparison Electronically Signed On 12-27-2024 20:27:43 CDT by Karey Franco M.D. Imaging CT scan - head: Radiologist's impression: Impressions Chest X-Ray 12/27/24 19:06 IMPRESSION: 1. No acute cardiopulmonary findings. Head CT 12/27/24 19:12 IMPRESSION: 1. No acute intracranial findings. Assessment and Plan Assessment and plan (1) Hyponatremia: Code(s): E87.1 - Hypo-osmolality and hyponatremia Status: Acute Assessment and Plan: -continue with normal saline. --check thyroid levels -check urine and serum osmolality -daily labs. -continue with IV fluids. -may consider Nephrology consult if no improvement in sodium levels. There are no prior labs for comparison. She is not on any diuretics. -the patient is weak which could be due to the low sodium. May consider PT OT evaluation if no improvement in strength after sodium levels have improved. (2) Cellulitis of neck: Code(s): L03.221 - Cellulitis of neck Status: Acute Assessment and Plan: -continue with Ancef -blood cultures are pending -white count is 20.8 which could possibly be reactive. However the patient was started on Ancef for the possibility of a secondary infection to the left earlobe. -daily CBC (3) Herpes zoster of neck: Code(s): B02.9 - Zoster without complications Status: Acute Assessment and Plan: -the patient was started on Valtrex. (4) Hypertension: Code(s): I10 - Essential (primary) hypertension Status: Acute Assessment and Plan: -continue with metoprolol and Norvasc if blood pressure allows. currently blood pressure 141/53. (5) Hyperlipidemia: Code(s): E78.5 - Hyperlipidemia, unspecified Status: Acute Assessment and Plan: -continue with atorvastatin and monitor liver enzymes (6) Seizure disorder: Code(s): G40.909 - Epilepsy, unspecified, not intractable, without status epilepticus Status: Acute Assessment and Plan: --continue with Keppra -seizure precautions -the patient stated that she was started on Keppra after she had a stroke. (7) Myasthenia gravis: Code(s): G70.00 - Myasthenia gravis without (acute) exacerbation Status: Acute Assessment and Plan: -continue with Mestinon -the patient stated it only affected her right eye. (8) Anxiety: Code(s): F41.9 - Anxiety disorder, unspecified Status: Acute Assessment and Plan: -continue with tranxene Quality VTE Prophylaxis VTE prophylaxis: mechanical ordered
[2024-12-28] MEDS: MELATONIN 5 MG TABLET PO (01:50)
[2024-12-28] MEDS: ACETAMINOPHEN 325 MG TABLET 650 MG PO ×3 (01:52→21:20)
[2024-12-28 05:27] VITALS: BP 122/44; PULSE 61; RESP 20; TEMP 36.4; O2SAT 97
[2024-12-28 05:41] LABS: Anion Gap -3 mmol/L (4-12); Blood Urea Nitrogen 9 mg/dL (7-17); Calcium 8.3 mg/dL (8.4-10.2); Carbon Dioxide 24 mmol/L (22-30); Chloride 107 mmol/L (98-107); Estimated CRCL calculation 38 ml/min; Estimated Glomerular Filt Rate > 60; Glucose 91 mg/dL (65-110); Potassium 4.0 mmol/L (3.4-5.0); Sodium 128 mmol/L (137-145)
[2024-12-28 07:25] LABS: Thyroid Stimulating Hormone Reflex 1.330 uIU/mL (0.465-4.68)
[2024-12-28 08:51] VITALS: PULSE 72
[2024-12-28] MEDS: ATORVASTATIN 20 MG TABLET PO (08:51)
[2024-12-28] MEDS: LORATADINE 10 MG TABLET PO (08:51)
[2024-12-28] MEDS: METOPROLOL TARTRATE 50 MG TAB PO (08:51)
[2024-12-28] MEDS: PANTOPRAZOLE 40 MG TABLET PO (08:51)
[2024-12-28] MEDS: CALCIUM/VITAMIN D 500 MG/5 MCG (200 I.U.) TABLET PO (08:51)
[2024-12-28] MEDS: CLORAZEPATE DIPOTASSIUM (*CRX) 7.5 MG TABLET PO ×3 (08:52→17:48)
[2024-12-28] MEDS: ceFAZolin 1 GM in SODIUM CHLORIDE 0.9% IV 50 ML 100 ML IVPB ×2 (08:52→21:21)
--- NOTE | 2024-12-28 11:59 | P.PNCROSS_ITS ---
Event Note Event Note Event Note: Patient feeling better, feels with more strength after working with therapy. S he tells me she was dehydrated due to her rash in pain she was not eating much. She would like something for pain, we agreed on Tylenol and tramadol. Hold off on any topicals for now. Place patient on contact isolation. Recheck sodium level later this afternoon. Continue IV fluids for now.
[2024-12-28] MEDS: SODIUM CHLORIDE 0.9% IV 1,000 ML 75 ML IV CONT (13:02)
[2024-12-28 14:00] VITALS: BP 119/50; PULSE 80; RESP 20; TEMP 36.5; O2SAT 100
[2024-12-28 16:05] LABS: Anion Gap 1 mmol/L (4-12); Blood Urea Nitrogen 11 mg/dL (7-17); Calcium 8.7 mg/dL (8.4-10.2); Carbon Dioxide 26 mmol/L (22-30); Chloride 105 mmol/L (98-107); Estimated CRCL calculation 36 ml/min; Estimated Glomerular Filt Rate > 60; Glucose 90 mg/dL (65-110); Potassium 4.1 mmol/L (3.4-5.0); Sodium 132 mmol/L (137-145)
[2024-12-28 20:13] VITALS: BP 118/54; PULSE 64; RESP 16; TEMP 36.6; O2SAT 97
[2024-12-28 20:22] LABS: Anion Gap 3 mmol/L (4-12); Blood Urea Nitrogen 11 mg/dL (7-17); Calcium 8.1 mg/dL (8.4-10.2); Carbon Dioxide 19 mmol/L (22-30); Chloride 107 mmol/L (98-107); Estimated CRCL calculation 36 ml/min; Estimated Glomerular Filt Rate > 60; Glucose 121 mg/dL (65-110); Potassium 3.6 mmol/L (3.4-5.0); Sodium 129 mmol/L (137-145)
[2024-12-29] MEDS: MELATONIN 5 MG TABLET PO ×2 (00:02→20:48)
[2024-12-29] MEDS: SODIUM CHLORIDE 0.9% IV 1,000 ML 75 ML IV CONT ×2 (00:02→14:14)
[2024-12-29 04:56] VITALS: BP 136/66; PULSE 73; RESP 16; TEMP 36.7; O2SAT 97
[2024-12-29 05:32] LABS: Anion Gap 0 mmol/L (4-12); Blood Urea Nitrogen 9 mg/dL (7-17); Calcium 8.3 mg/dL (8.4-10.2); Carbon Dioxide 22 mmol/L (22-30); Chloride 110 mmol/L (98-107); Estimated CRCL calculation 37 ml/min; Estimated Glomerular Filt Rate > 60; Glucose 96 mg/dL (65-110); Magnesium 1.8 mg/dL (1.6-2.3); Potassium 3.7 mmol/L (3.4-5.0); Sodium 132 mmol/L (137-145)
[2024-12-29 05:38] LABS: Hematocrit 36.3 % (37.0-47.0); Hemoglobin 12.0 g/dL (12.0-15.0); Immature Granulocyte Percent A 0.3 % (0-0.5); Lymphocytes Absolute Auto 2.48 K/mm3 (0.9-3.2); Mean Corpuscular HGB Conc 33.1 g/dl (32-36); Mean Corpuscular Hemoglobin 32.1 pg (26-34); Mean Corpuscular Volume 97.1 fl (80-100); Nucleated Red Blood Cells Absolute Auto 0.000 K/mm3 (0.0-0.012); Nucleated Red Blood Cells Perc 0.0 % (0.0-0.2); Platelet Count Result 186 k/mm3 (150-375); Red Blood Count 3.74 M/mm3 (4.2-5.4); White Blood Count 9.8 K/mm3 (4.5-10.0)
[2024-12-29 05:53] LABS: Procalcitonin 0.2 ng/mL
[2024-12-29] MEDS: ACETAMINOPHEN 325 MG TABLET 650 MG PO ×4 (06:30→20:48)
[2024-12-29 09:00] VITALS: PULSE 75
[2024-12-29] MEDS: CALCIUM/VITAMIN D 500 MG/5 MCG (200 I.U.) TABLET PO (09:00)
[2024-12-29] MEDS: METOPROLOL TARTRATE 50 MG TAB PO (09:00)
[2024-12-29] MEDS: CLORAZEPATE DIPOTASSIUM (*CRX) 7.5 MG TABLET PO ×3 (09:00→16:33)
[2024-12-29] MEDS: ATORVASTATIN 20 MG TABLET PO (09:00)
[2024-12-29] MEDS: ceFAZolin 1 GM in SODIUM CHLORIDE 0.9% IV 50 ML 100 ML IVPB (09:00)
[2024-12-29] MEDS: LORATADINE 10 MG TABLET PO (09:00)
[2024-12-29] MEDS: PANTOPRAZOLE 40 MG TABLET PO (09:00)
[2024-12-29 09:09] VITALS: O2SAT 99
--- NOTE | 2024-12-29 09:52 | PC.NURSE ---
During cable television line technician noticed new onset of hoarseness and difficulty swallowing pills. Patient was 99% on RA, but RN called MD Mustafa and assessed patient bedside with nurse.
[2024-12-29 14:00] VITALS: BP 140/61; PULSE 64; RESP 16; TEMP 36.8; O2SAT 97
--- NOTE | 2024-12-29 14:55 | PM.IMPN ---
Progress Note: A&P Assessment and Plan (1) Hypertension: Code(s): I10 - Essential (primary) hypertension Status: Acute (2) Hyponatremia: Code(s): E87.1 - Hypo-osmolality and hyponatremia Status: Acute (3) Herpes zoster of neck: Code(s): B02.9 - Zoster without complications Status: Acute (4) Cellulitis of neck: Code(s): L03.221 - Cellulitis of neck Status: Acute (5) Seizure disorder: Code(s): G40.909 - Epilepsy, unspecified, not intractable, without status epilepticus Status: Acute (6) Myasthenia gravis: Code(s): G70.00 - Myasthenia gravis without (acute) exacerbation Status: Acute (7) Generalized weakness: Code(s): R53.1 - Weakness Status: Acute Plan 89-year-old female patient who came to the emergency room due to increased weakness. PMH hyperlipidemia, hypertension, breast cancer, seizure disorder, CVA, anxiety, myasthenia gravis. The patient initially felt that she was weak from receiving an influenza vaccine last week in her primary care doctor's office. She stated that she was too weak to ambulate appropriately. She does live home alone and she fell 2 days ago. She denied losing consciousness or hitting her head. She also self reported temperature of 101?. She also noticed a rash to the left side of her neck that radiated to her left jaw line and cheek. 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 Her head CT was read as no acute intracranial findings. Her white count was noted to be 20.8. Neutrophil percentage 86%. Her sodium levels 127 without any previous labs for comparison. Urinalysis shows 1+ ketones with positive urine nitrates and 2+ leukocyte esterase. Patient denies any urinary symptoms at this time. The patient was started on Ancef for possible cellulitis the left ear lobe. She was also started on Valtrex for herpes zoster and started on IV fluids. Admitted on 12/28/2024 ----- Weakness and falls: Head CT on admission on 12/27/2024 without acute findings. No evidence of stroke. Patient reported poor oral intake, likely due to dehydration. Has improved significantly with IV fluids, stop IV fluids on 12/29/2024. Continue PT/OT evaluations, recommending outpatient therapy. Hyponatremia: Could be partially due to hypovolemia/dehydration. Improved status post IV fluids, since discontinued. She is also on Keppra long-term which can cause hyponatremia. Continue to monitor. Urinalysis slightly abnormal on admission. Follow urine culture. Gram-positive cocci Bacteremia: Blood cultures drawn on admission, resulting positive on 12/29/2024. First blood culture Gram-positive cocci in anaerobic bottle, and blood culture Gram-positive cocci in aerobic bottle. On 12/29/2024 change cefazolin to vancomycin. Of note, prior to this change the patient has been stable, afebrile, no leukocytosis. Repeat blood culture placed for 12/31/2024 Shingles of the neck/cellulitis: Present on admission. Continue valacyclovir 1 g q.8 hours. On 12/29/2024 cefazolin changed to vancomycin due to bacteremia. Anxiety disorder: Continue MEDICAL SERVICE REPRESENTATIVE Tranxene Myasthenia gravis: On 12/29/2024 patient complained of hoarseness of voice. She has no other symptomatology to indicate myasthenia crisis. Unclear if this is due to myasthenia or herpes/cellulitis. Continue MEDICAL SERVICE REPRESENTATIVE parotid assisting mean 120 mg p.o. q.6 hour. Consult Neurology for their opinion. Essential hypertension: You MEDICAL SERVICE REPRESENTATIVE amlodipine 10 mg p.o. q.day. Monitor blood pressure. At goal. ----- Prior to admission patient lives at home, she is independent. Patient wishes to be full code. Saline lock IV. Continue MEDICAL SERVICE REPRESENTATIVE PPI Continue MEDICAL SERVICE REPRESENTATIVE atorvastatin Aspiration precaution. Contact precautions until vesicles are crusted over completely. Continue PT/OT evaluations, plan is to discharge home with outpatient therapy. Time Spent With Patient Time with patient: Greater than 35 minutes Subjective Date/time seen: 12/29/24 14:55 Interval history: Patient reports this morning her voice was squeaky, then she ate a popsicle in since then her voice has been hoarse. She reports a left-sided pain is persistent, rashes improved. She denies any other symptoms including fever, shortness of breath, difficulty swallowing, painful swallowing, shortness of breath, drooping of eyelids or facial muscles, double vision. Review of Systems Review of Systems: All systems reviewed & are unremarkable except as noted in HPI and below (Subjective) Exam Const: General: comfortable and no acute distress Other: A&O x3 HENMT: Mouth: Yes moist mucous membranes Eyes: Pupils: Equal, round and reactive pupils present Neck: Neck: supple Resp: Effort & Inspection: normal respiratory effort Auscultation: clear to auscultation bilaterally Cardio: Rate: regular rate Rhythm: regular rhythm Heart sounds: no murmurs GI: Inspection: non-distended GI Palp: Yes Soft to palpation Skin: Other: Crusting vesicles on the left side neck and left mastoid process. Painful to palpation, painful cervical lymphadenopathy. Associated erythema Neuro: Motor exam (neuro): 5/5 motor strength present throughout Extrem: General: no edema Objective Data Vital Signs Vital Signs: Vital Signs - 24 hr 12/28/24 20:13 12/28/24 21:06 12/29/24 04:56 Temperature 97.8 F 98.0 F Pulse Rate 64 73 Respiratory Rate 16 16 Blood Pressure 118/54 L 136/66 Pulse Oximetry 97 97 Oxygen Delivery Room Air 12/29/24 09:00 12/29/24 09:09 Temperature Pulse Rate 75 Respiratory Rate Blood Pressure Pulse Oximetry 99 Oxygen Delivery Room Air Intake/Output Intake/Output: Intake & Output 12/26/24 12/27/24 12/28/24 12/29/24 23:59 23:59 23:59 23:59 Intake Total 1050 2250 2335 Output Total 1000 2100 Balance 1050 1250 235 Meds/Results Medications: Active Medications Generic Name Dose Route Start Last Admin Trade Name Freq PRN Reason Stop Dose Admin Acetaminophen 650 mg 12/27/24 22:42 12/29/24 11:48 Acetaminophen 325 Mg Tablet PO 650 mg Q4H PRN Administration Mild Pain (1-3) or Fever Amlodipine Besylate 10 mg 12/28/24 09:00 12/29/24 09:00 Amlodipine Besylate 10 Mg Tablet PO 10 mg DAILY KELSY Administration Atorvastatin Calcium 20 mg 12/28/24 09:00 12/29/24 09:00 Atorvastatin 20 Mg Tablet PO 20 mg DAILY KELSY Administration Calcium Carbonate 500 mg 12/28/24 09:00 12/29/24 09:00 Calcium/Vitamin D 500 Mg/5 Mcg (200 I.U.) Tablet PO 500 mg DAILY KELSY Administration Clorazepate Dipotassium 7.5 mg 12/28/24 09:00 12/29/24 11:48 Clorazepate Dipotassium (*Crx) 7.5 Mg Tablet PO 7.5 mg TID KELSY Administration Dextrose 12.5 gm 12/27/24 22:42 Dextrose 50% 25 Gm/50 Ml Syringe IV PUSH PRN PRN Hypoglycemia Protocol Glucose 15 gm 12/27/24 22:42 Glucose Oral Gel 15 Gm Of Glucse In 37.5 Gm Tube PO PRN PRN Hypoglycemia Protocol Sodium Chloride 1,000 mls @ 75 mls/hr 12/27/24 22:45 12/29/24 14:14 Normal Saline Iv IV CONT 75 mls/hr .[id number] KELSY Administration Dextrose 1,000 mls @ 100 mls/hr 12/27/24 22:42 Dextrose 5% 1,000 Ml IVPB PRN PRN Hypoglycemia Protocol Cefazolin Sodium 1 gm/ Sodium 50 mls @ 100 mls/hr 12/28/24 08:00 12/29/24 09:00 Chloride IVPB 100 mls/hr Q12H KELSY Administration Levetiracetam 750 mg 12/28/24 09:00 12/29/24 09:04 Levetiracetam 250 Mg Tablet PO 750 mg Q12HR KELSY Administration Loratadine 10 mg 12/28/24 09:00 12/29/24 09:00 Loratadine 10 Mg Tablet PO 10 mg DAILY KELSY Administration Melatonin 5 mg 12/28/24 01:30 12/29/24 00:02 Melatonin 5 Mg Tablet PO 5 mg HS KELSY Administration Metoprolol Tartrate 50 mg 12/28/24 09:00 12/29/24 09:00 Metoprolol Tartrate 50 Mg Tab PO 50 mg DAILY KELSY Administration Ondansetron HCl 4 mg 12/27/24 22:42 Ondansetron Inj 4 Mg/2 Ml Vial IV PUSH Q4H PRN Nausea Pantoprazole Sodium 40 mg 12/28/24 09:00 12/29/24 09:00 Pantoprazole 40 Mg Tablet PO 40 mg QAM KELSY Administration Pyridostigmine [place] 120 mg 12/28/24 12:00 12/29/24 11:48 Pyridostigmine [place] 60 Mg Tablet PO 120 mg Q6HR KELSY Administration Tramadol HCl 25 mg 12/28/24 12:00 Tramadol Hcl (*Crx) 25 Mg Tablet PO Q6H PRN Pain Rated 4-6 Valacyclovir HCl 1,000 mg 12/28/24 06:00 12/29/24 14:14 Valacyclovir Hcl 500 Mg Tablet PO 1,000 mg Q8HR KELSY Administration Radiology Results: ITS Impressions Chest X-Ray 12/27/24 19:06 IMPRESSION: 1. No acute cardiopulmonary findings. Head CT 12/27/24 19:12 IMPRESSION: 1. No acute intracranial findings. Labs Labs: Laboratory Results - last 24 hr 12/28/24 12/28/24 12/29/24 15:27 20:08 05:04 WBC 9.8 RBC 3.74 L Hgb 12.0 Hct 36.3 L MCV 97.1 MCH 32.1 MCHC 33.1 RDW 12.9 Plt Count 186 MPV 9.6 Immature Gran % (Auto) 0.3 Neut % (Auto) 65.2 Lymph % (Auto) 25.4 [place] % (Auto) 7.6 Eos % (Auto) 1.1 Baso % (Auto) 0.4 Lymph # (Auto) 2.48 [place] # (Auto) 0.7 H Eos # (Auto) 0.1 Baso # (Auto) 0.0 Abs Immat Gran (auto) 0.03 Absolute Neuts (auto) 6.4 Absolute Nucleated RBC 0.000 Nucleated RBC % 0.0 Sodium 132 L 129 L 132 L Potassium 4.1 3.6 3.7 Chloride 105 107 110 H Carbon Dioxide 26 19 L 22 Anion Gap 1 L 3 L 0 L BUN 11 11 9 Creatinine 0.77 0.77 0.74 Estim Creat Clear Calc 36 36 37 Estimated GFR > 60 > 60 > 60 Glucose 90 121 H 96 Calcium 8.7 8.1 L 8.3 L Magnesium 1.8 Procalcitonin 0.2
[2024-12-29] MEDS: VANCOMYCIN 1,250 MG/NS 250 ML 1,250 MG/250 ML BAG 166.67 MG IVPB (16:33)
[2024-12-29 20:35] VITALS: BP 131/56; PULSE 60; RESP 16; TEMP 36.5; O2SAT 98
[2024-12-30] MEDS: ACETAMINOPHEN 325 MG TABLET 650 MG PO ×2 (04:31→21:14)
[2024-12-30 04:33] VITALS: BP 154/63; PULSE 69; RESP 16; TEMP 36.5; O2SAT 97
[2024-12-30 05:16] LABS: Hematocrit 37.6 % (37.0-47.0); Hemoglobin 12.6 g/dL (12.0-15.0); Immature Granulocyte Percent A 0.3 % (0-0.5); Lymphocytes Absolute Auto 1.99 K/mm3 (0.9-3.2); Mean Corpuscular HGB Conc 33.5 g/dl (32-36); Mean Corpuscular Hemoglobin 32.4 pg (26-34); Mean Corpuscular Volume 96.7 fl (80-100); Nucleated Red Blood Cells Absolute Auto 0.000 K/mm3 (0.0-0.012); Nucleated Red Blood Cells Perc 0.0 % (0.0-0.2); Platelet Count Result 200 k/mm3 (150-375); Red Blood Count 3.89 M/mm3 (4.2-5.4); White Blood Count 6.2 K/mm3 (4.5-10.0)
[2024-12-30 05:35] LABS: Anion Gap 0 mmol/L (4-12); Blood Urea Nitrogen 7 mg/dL (7-17); Calcium 8.5 mg/dL (8.4-10.2); Carbon Dioxide 24 mmol/L (22-30); Chloride 108 mmol/L (98-107); Estimated CRCL calculation 41 ml/min; Estimated Glomerular Filt Rate > 60; Glucose 90 mg/dL (65-110); Magnesium 1.9 mg/dL (1.6-2.3); Potassium 3.7 mmol/L (3.4-5.0); Sodium 132 mmol/L (137-145)
[2024-12-30 08:12] VITALS: BP 137/57; PULSE 70; RESP 18; TEMP 36.4; O2SAT 99
[2024-12-30] MEDS: ATORVASTATIN 20 MG TABLET PO (08:14)
[2024-12-30 08:15] VITALS: PULSE 84; RESP 18; O2SAT 99
[2024-12-30] MEDS: METOPROLOL TARTRATE 50 MG TAB PO (08:15)
[2024-12-30] MEDS: CLORAZEPATE DIPOTASSIUM (*CRX) 7.5 MG TABLET PO ×3 (08:15→17:20)
[2024-12-30] MEDS: PANTOPRAZOLE 40 MG TABLET PO (08:15)
[2024-12-30] MEDS: LORATADINE 10 MG TABLET PO (08:15)
[2024-12-30] MEDS: CALCIUM/VITAMIN D 500 MG/5 MCG (200 I.U.) TABLET PO (08:15)
[2024-12-30 14:00] VITALS: BP 133/57; PULSE 59; RESP 16; TEMP 36.5; O2SAT 100
[2024-12-30] MEDS: cefTRIAXone 2 GM in SODIUM CHLORIDE 0.9% IV 100 ML 200 ML IVPB (14:43)
--- NOTE | 2024-12-30 15:49 | WPDNEURCNPN ---
Assessment and Plan Assessment and plan (1) Herpes zoster of neck: Code(s): B02.9 - Zoster without complications Status: Acute Assessment and Plan: The patient was started on Valtrex which seem to be helpful. You may consider continuation of the treatment for 10 days unless specified otherwise by Infectious Disease or pharmacist.. 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 She appears to be fairly controlled particularly since he had no difficulty swallowing. Her speech is not quite clear but this could be due to difficulty opening her mouth with the infection on the left side of the head. She feels much better than before. (3) Seizure disorder: Code(s): G40.909 - Epilepsy, unspecified, not intractable, without status epilepticus Status: Acute Assessment and Plan: These are controlled with the Keppra 750 mg twice a day and hence he may continue with it. (4) CVA (cerebral vascular accident): Code(s): I63.9 - Cerebral infarction, unspecified Status: Acute Assessment and Plan: She had a CVA with right-sided weakness with some speech difficulties 15 years ago and she started having seizure at the same time also. She made a recovery in her right-sided weakness as well as speech to almost complete recovery. Plan I noted the patient is on atorvastatin 20 mg a day. She does have a history of previous stroke with right-sided weakness and she made a fair recovery 15 years ago. Currently she is admitted mostly because the pain and rash on the left side of the neck which was thought to be herpes zoster which is improving very well with the current treatment. She follows with primary care provider routinely. Her lipid profile and carotid Doppler study should be checked periodically and I will go ahead and order it. She is also not on any antiplatelets hence I would suggest aspirin 81 mg a day. With regard to myasthenia there has not been respect to any other part of the head and neck were body besides eyes according the patient over the last 2-3 years. Consult date: 12/30/24 HPI: Paige Barillas is a 89 year old female with history of ocular myasthenia follows with a specialist in [facility] for last 2 3 years, history of CVA 15 years ago and had seizures presented to the hospital with fever of 101 and rash on the left side of the neck and ear. Her white cell count was high at 20.8. Disc included 85% polymorphs. Serum sodium was low at 127. She was thought to have herpes zoster. She is much better now and afebrile and the rash is also nearly disappearing. She is on Keppra 1500 mg a day for seizures and has not had any seizure for quite some time. She has some difficulty with speech but no difficulty swallowing. She attributed the difficulty speech to the herpes zoster infection involving the left side of Neck. She denies any weakness in upper lower limbs as such she 1st came in she was generally weak but was moving all extremities and previous examination by other physicians have noted any weakness either side. The patient also states that the myasthenia affected only her eyes and the diagnosis of may over 2 years ago. She was able to walk under the supervision of physical therapy today . Her white cell count is down to 6.2. She still has some discomfort where she has the rash but overall she is doing much better. It was noted that for ocular myasthenia she is on pyridostigmine 120 mg q.6 hourly. She was treated with the Valtrex 1000 mg Q 8 hourly for the herpes zoster. It has been helpful. No prior history of similar infection. Review of Systems Review of Systems: All systems reviewed & are unremarkable except as noted in HPI and below PMFSH Past Medical History Medical History (Updated 12/30/24 @ 15:57 by Jania Jordan MD) Ocular myasthenia gravis Anxiety Seizure disorder CVA (cerebral vascular accident) Breast cancer Myasthenia gravis Hyperlipidemia Hypertension Surgical History Surgical History (Updated 12/28/24 @ 02:11 by Micaela Felder APRN) History of tonsillectomy and adenoidectomy H/O: hysterectomy History of cataract extraction History of appendectomy H/O mastectomy Left breast Family History Family History Father Acute myocardial infarction Mother Acute myocardial infarction Congestive heart failure Diabetes mellitus Hypertension Daughter Colon cancer Social History Social History (Updated 12/28/24 @ 02:12 by Micaela Felder APRN) Social History: She lives home alone. She had 1 adopted daughter and 1 biological son and both of them have passed in their 40s. Code status: Full code Smoking status: Never smoker Alcohol intake: never Substance use: never Lack of Transportation: No Lack of Food: Never True Current Housing: I Have Housing Concerned About Future Housing: No Difficulty Paying Gas/Electric Bills: No Difficulty Paying for Meds: No Currently Unemployed: No Education: High School Diploma/GED Difficulty w/ Childcare or Family Care: No Spiritual care concerns: No Meds Home Medications and Allergies Home Medications ?Medication ?Instructions ?Recorded ?Confirmed ?Type amlodipine 10 mg tablet 10 mg PO DAILY 03/03/24 12/27/24 History atorvastatin 20 mg tablet 20 mg PO DAILY 03/03/24 12/27/24 History clorazepate dipotassium 7.5 mg 7.5 mg PO TID 03/03/24 12/27/24 History tablet levetiracetam 750 mg tablet 750 mg PO BID 03/03/24 12/27/24 History metoprolol tartrate 50 mg tablet 50 mg PO DAILY 03/03/24 12/28/24 History pyridostigmine bromide 60 mg tablet 120 mg PO TID 03/03/24 12/27/24 History calcium 500 mg (as 1 tablet PO DAILY 12/27/24 12/28/24 History carbonate)-vitamin D3 10 mcg (400 unit) tablet (Oyster Shell Calcium-Vitamin D3) loratadine 10 mg capsule (Allergy 10 mg PO DAILY 12/28/24 12/28/24 History Relief (loratadine)) omeprazole 20 mg capsule,delayed 20 mg PO DAILY 12/28/24 12/28/24 History release Allergies Allergy/AdvReac Type Severity Reaction Status Date / Time Sulfa (Sulfonamide Allergy Severe Anaphylactic Verified 12/28/24 04:59 Antibiotics) Shock Iodinated Contrast Media Allergy Unknown Unknown Verified 12/28/24 04:59 Vital Signs Vital Signs - 24 hr 12/29/24 20:35 12/30/24 04:33 12/30/24 08:12 Temperature 97.7 F 97.7 F 97.6 F Pulse Rate 60 69 70 Respiratory Rate 16 16 18 Blood Pressure 131/56 L 154/63 H 137/57 L Pulse Oximetry 98 97 99 Oxygen Delivery 12/30/24 08:15 12/30/24 08:15 Temperature Pulse Rate 84 84 Respiratory Rate 18 Blood Pressure Pulse Oximetry 99 Oxygen Delivery Room Air Exam Const: General: cooperative, healthy appearing and comfortable HENMT: Head: atraumatic Mouth: Yes oropharynx normal Other: Mild erythema of the left ear and the left side of the neck however diabetic lesion seem to have healed. She has mild dysarthria but she does not have any difficulty swallowing no aphasia. No drooping of the eyelids. No weakness of the neck flexors and extensors. She is able to move her neck sideways has good strength. Eyes: Alignment and Position: alignment normal and position normal Pupils: Equal, round and reactive pupils present EOM: EOMs intact bilaterally Neck: Neck: normal visual inspection and supple Resp: Effort & Inspection: normal respiratory effort Cardio: Heart sounds: S1 normal heart sound present and S2 normal heart sound present Skin: General skin exam: normal color Neuro: Cranial nerves: Yes CN's II-XII intact bilaterally, Yes facial symmetry and Yes Midline tongue present Cognition (Neuro): normal cognition Motor exam (neuro): 5/5 motor strength present throughout Sensory Exam: normal sensation Coordination: [id number] test normal and Normal rapid alternating movements of the distal upper extremity present (Neuro) Other: Deep tendon reflexes are 1 to 2/4 and did not show any asymmetry. Extrem: General: normal to inspection Psych: Appearance: well kempt Mental Status: mental status grossly normal Speech and movement: Normal speech and movement present Affect: normal affect Thought process: Normal thought process present Thought content: Yes Normal thought content present Insight: Good insight present (Psych) Judgement: Good judgement present (Psych) Results Labs 12/30/24 04:51 12/30/24 04:51 Labs: Short CBC 12/30/24 Range/Units 04:51 WBC 6.2 (4.5-10.0) K/mm3 Hgb 12.6 (12.0-15.0) g/dL Hct 37.6 (37.0-47.0) % Plt Count 200 (150-375) k/mm3 [facility] 12/30/24 04:51 Sodium 132 L Potassium 3.7 Chloride 108 H Carbon Dioxide 24 BUN 7 Creatinine 0.67 L Glucose 90 Calcium 8.5
[2024-12-30] MEDS: MELATONIN 5 MG TABLET PO (21:15)
[2024-12-30 21:22] VITALS: BP 164/54; PULSE 67; RESP 16; TEMP 36.4; O2SAT 99
[2024-12-31 04:48] VITALS: BP 140/55; PULSE 60; RESP 16; TEMP 37; O2SAT 96
[2024-12-31 05:19] LABS: Cholesterol 112 mg/dL (0-200); HDL Direct 63 mg/dL; Triglycerides 72 mg/dL (<150)
--- NOTE | 2024-12-31 07:41 | P.PNIM_ITS ---
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 Patient is stable. We have discussed her plan of care. She is amenable. Will draw blood cultures tomorrow. Continue ceftriaxone for now. Discussed with pharmacy. Patient would like to be full code. Time Spent With Patient Time with patient: Greater than 35 minutes Subjective Date/time seen: 12/30/2024 at 3:00 p.m. Interval history: No acute overnight events. She is satisfied with the workup the neurologist as performed. She thinks her voice is better. Review of Systems Review of Systems: All systems reviewed & are unremarkable except as noted in HPI and below (Subjective) Exam Const: General: comfortable and no acute distress Other: A&O x3 HENMT: Mouth: Yes moist mucous membranes Eyes: Pupils: Equal, round and reactive pupils present Neck: Neck: supple Resp: Effort & Inspection: normal respiratory effort Auscultation: clear to auscultation bilaterally Cardio: Rate: regular rate Rhythm: regular rhythm Heart sounds: no murmurs GI: Inspection: non-distended GI Palp: Yes Soft to palpation Skin: Other: Crusting vesicles on the left side neck and left mastoid process. Painful to palpation, painful cervical lymphadenopathy. Associated erythema Neuro: Motor exam (neuro): 5/5 motor strength present throughout Extrem: General: no edema Objective Data Vital Signs Vital Signs: Vital Signs - 24 hr 12/30/24 08:12 12/30/24 08:15 12/30/24 08:15 Temperature 97.6 F Pulse Rate 70 84 84 Respiratory Rate 18 18 Blood Pressure 137/57 L Pulse Oximetry 99 99 Oxygen Delivery Room Air 12/30/24 14:00 12/30/24 21:14 12/30/24 21:22 Temperature 97.7 F 97.6 F Pulse Rate 59 L 67 Respiratory Rate 16 16 Blood Pressure 133/57 L 164/54 H Pulse Oximetry 100 99 Oxygen Delivery Room Air 12/31/24 04:48 Temperature 98.6 F Pulse Rate 60 Respiratory Rate 16 Blood Pressure 140/55 L Pulse Oximetry 96 Oxygen Delivery Intake/Output Intake/Output: Intake & Output 12/28/24 12/29/24 12/30/24 12/31/24 23:59 23:59 23:59 23:59 Intake Total 2250 3555 930 820 Output Total 1000 2800 1950 Balance 1250 755 -1020 820 Meds/Results Medications: Active Medications Generic Name Dose Route Start Last Admin Trade Name Freq PRN Reason Stop Dose Admin Acetaminophen 650 mg 12/27/24 22:42 12/30/24 21:14 Acetaminophen 325 Mg Tablet PO 650 mg Q4H PRN Administration Mild Pain (1-3) or Fever Amlodipine Besylate 10 mg 12/28/24 09:00 12/30/24 08:14 Amlodipine Besylate 10 Mg Tablet PO 10 mg DAILY KELSY Administration Aspirin 81 mg 12/31/24 09:00 Aspirin 81 Mg Enteric Tablet PO QAM KELSY Atorvastatin Calcium 20 mg 12/28/24 09:00 12/30/24 08:14 Atorvastatin 20 Mg Tablet PO 20 mg DAILY KELSY Administration Calcium Carbonate 500 mg 12/28/24 09:00 12/30/24 08:15 Calcium/Vitamin D 500 Mg/5 Mcg (200 I.U.) Tablet PO 500 mg DAILY KELSY Administration Clorazepate Dipotassium 7.5 mg 12/28/24 09:00 12/30/24 17:20 Clorazepate Dipotassium (*Crx) 7.5 Mg Tablet PO 7.5 mg TID KELSY Administration Dextrose 12.5 gm 12/27/24 22:42 Dextrose 50% 25 Gm/50 Ml Syringe IV PUSH PRN PRN Hypoglycemia Protocol Glucose 15 gm 12/27/24 22:42 Glucose Oral Gel 15 Gm Of Glucse In 37.5 Gm Tube PO PRN PRN Hypoglycemia Protocol Dextrose 1,000 mls @ 100 mls/hr 12/27/24 22:42 Dextrose 5% 1,000 Ml IVPB PRN PRN Hypoglycemia Protocol Ceftriaxone Sodium 2 gm/ 100 mls @ 200 mls/hr 12/30/24 15:00 12/30/24 15:13 Sodium Chloride IVPB Infused Q24H KELSY Infusion Levetiracetam 750 mg 12/28/24 09:00 12/30/24 21:14 Levetiracetam 250 Mg Tablet PO 750 mg Q12HR KELSY Administration Loratadine 10 mg 12/28/24 09:00 12/30/24 08:15 Loratadine 10 Mg Tablet PO 10 mg DAILY KELSY Administration Melatonin 5 mg 12/28/24 01:30 12/30/24 21:15 Melatonin 5 Mg Tablet PO 5 mg HS KELSY Administration Metoprolol Tartrate 50 mg 12/28/24 09:00 12/30/24 08:15 Metoprolol Tartrate 50 Mg Tab PO 50 mg DAILY KELSY Administration Ondansetron HCl 4 mg 12/27/24 22:42 Ondansetron Inj 4 Mg/2 Ml Vial IV PUSH Q4H PRN Nausea Pantoprazole Sodium 40 mg 12/28/24 09:00 12/30/24 08:15 Pantoprazole 40 Mg Tablet PO 40 mg QAM KELSY Administration Pyridostigmine [place] 120 mg 12/28/24 12:00 12/31/24 05:23 Pyridostigmine [place] 60 Mg Tablet PO 120 mg Q6HR KELSY Administration Tramadol HCl 25 mg 12/28/24 12:00 Tramadol Hcl (*Crx) 25 Mg Tablet PO Q6H PRN Pain Rated 4-6 Valacyclovir HCl 1,000 mg 12/28/24 06:00 12/31/24 05:23 Valacyclovir Hcl 500 Mg Tablet PO 1,000 mg Q8HR KELSY Administration Radiology Results: ITS Impressions Chest X-Ray 12/27/24 19:06 IMPRESSION: 1. No acute cardiopulmonary findings. Head CT 12/27/24 19:12 IMPRESSION: 1. No acute intracranial findings. Carotid Doppler Study 12/30/24 19:47 IMPRESSION: 1. No hemodynamically significant ICA stenosis (i.e., if any stenosis, less than 50%). 2. Normal bilateral antegrade vertebral artery flow. Stenosis measured by Society of Radiologists in Ultrasound (SRU) criteria. Labs Labs: Laboratory Results - last 24 hr 12/28/24 12/31/24 05:03 04:40 Triglycerides 72 Cholesterol 112 LDL Cholesterol Direct 42 HDL Direct 63 Levetiracetam 11.5
--- NOTE | 2024-12-31 07:42 | P.PNIM_ITS ---
Progress Note: A&P Assessment and Plan (1) Hypertension: Code(s): I10 - Essential (primary) hypertension Status: Acute (2) Hyponatremia: Code(s): E87.1 - Hypo-osmolality and hyponatremia Status: Acute (3) Herpes zoster of neck: Code(s): B02.9 - Zoster without complications Status: Acute (4) Cellulitis of neck: Code(s): L03.221 - Cellulitis of neck Status: Acute (5) Seizure disorder: Code(s): G40.909 - Epilepsy, unspecified, not intractable, without status epilepticus Status: Acute (6) Myasthenia gravis: Code(s): G70.00 - Myasthenia gravis without (acute) exacerbation Status: Acute (7) Generalized weakness: Code(s): R53.1 - Weakness Status: Acute Plan 89-year-old female patient who came to the emergency room due to increased weakness. PMH hyperlipidemia, hypertension, breast cancer, seizure disorder, CVA, anxiety, myasthenia gravis. The patient initially felt that she was weak from receiving an influenza vaccine last week in her primary care doctor's office. She stated that she was too weak to ambulate appropriately. She does live home alone and she fell 2 days ago. She denied losing consciousness or hitting her head. She also self reported temperature of 101?. She also noticed a rash to the left side of her neck that radiated to her left jaw line and cheek. 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 Her head CT was read as no acute intracranial findings. Her white count was noted to be 20.8. Neutrophil percentage 86%. Her sodium levels 127 without any previous labs for comparison. Urinalysis shows 1+ ketones with positive urine nitrates and 2+ leukocyte esterase. Patient denies any urinary symptoms at this time. The patient was started on Ancef for possible cellulitis the left ear lobe. She was also started on Valtrex for herpes zoster and started on IV fluids. Admitted on 12/28/2024 ----- Weakness and falls: Head CT on admission on 12/27/2024 without acute findings. No evidence of stroke. Patient reported poor oral intake, likely due to dehydration. Has improved significantly with IV fluids, stop IV fluids on 12/29/2024. Continue PT/OT evaluations, recommending outpatient therapy. Hyponatremia: Could be partially due to hypovolemia/dehydration. Improved status post IV fluids, since discontinued. She is also on Keppra long-term which can cause hyponatremia. Continue to monitor. Urinalysis on admission abnormal on 12/27/2024. Urine culture negative. Gram-positive cocci Bacteremia: Blood cultures drawn on admission, resulting positive on 12/29/2024. First blood culture Gram-positive cocci in anaerobic bottle, and blood culture Gram-positive cocci in aerobic bottle. On 12/29/2024 change cefazolin to vancomycin, switched to ceftriaxone on 12/30/2024. Of note, prior to blood culture positivity the patient had been stable without any leukocytosis or fever. Repeat blood culture today on 12/31/2024. Shingles of the neck/cellulitis: Present on admission. Continue valacyclovir 1 g q.8 hours for total 10 days. Cefazolin changed to vancomycin and then ceftriaxone due to bacteremia. Anxiety disorder: Continue EMPLOYEE RELATIONS MANAGER Tran[employer] Myasthenia gravis: On 12/29/2024 patient complained of hoarseness of voice. She has no other symptomatology to indicate myasthenia crisis. Continue pyridostigmine 120 mg q.6 hours. Neurology mentation has been noted. Lipid panel and carotid Doppler has been obtained. History of CVA remotely right-sided weakness speech difficulties in seizure, all resolved. Continue EMPLOYEE RELATIONS MANAGER atorvastatin 20 mg p.o. q.day. continue EMPLOYEE RELATIONS MANAGER Keppra. Started on aspirin 81 mg p.o. q.a.m.. Essential hypertension: Continue EMPLOYEE RELATIONS MANAGER amlodipine 10 mg p.o. q.day. Monitor blood pressure. At goal. ----- Prior to admission patient lives at home, she is independent. Patient wishes to be full code. Saline lock IV. Continue EMPLOYEE RELATIONS MANAGER PPI Continue EMPLOYEE RELATIONS MANAGER atorvastatin Aspiration precaution. Fall precaution Contact precautions until vesicles are crusted over completely. Continue PT/OT evaluations, plan is to discharge home with outpatient therapy. Time Spent With Patient Time with patient: Greater than 35 minutes Subjective Date/time seen: 12/31/24 07:42 Interval history: Patient thinks her voice is better today. It is still squeaky at times. Otherwise, she has no complaints other than feeling tired because she had multiple visitors yesterday. She does not endorse any new weakness or difficulty swallowing. She would like to transfer her neurology care over to Dr. Jordan. Review of Systems Review of Systems: All systems reviewed & are unremarkable except as noted in HPI and below (Subjective) Exam Const: General: comfortable and no acute distress Other: A&O x3 HENMT: Mouth: Yes moist mucous membranes Other: orofacial muscles intact. Eyes: Pupils: Equal, round and reactive pupils present Neck: Neck: supple Resp: Effort & Inspection: normal respiratory effort Auscultation: clear to auscultation bilaterally Cardio: Rate: regular rate Rhythm: regular rhythm Heart sounds: no murmurs GI: Inspection: non-distended GI Palp: Yes Soft to palpation and No Guarding due to palpation present (GI) Skin: Other: Erythema, tenderness to palpation all improved. Vesicles have crusted over with the exception of a few. Neuro: Motor exam (neuro): 5/5 motor strength present throughout Extrem: General: no edema Objective Data Vital Signs Vital Signs: Vital Signs - 24 hr 12/30/24 08:12 12/30/24 08:15 12/30/24 08:15 Temperature 97.6 F Pulse Rate 70 84 84 Respiratory Rate 18 18 Blood Pressure 137/57 L Pulse Oximetry 99 99 Oxygen Delivery Room Air 12/30/24 14:00 12/30/24 21:14 12/30/24 21:22 Temperature 97.7 F 97.6 F Pulse Rate 59 L 67 Respiratory Rate 16 16 Blood Pressure 133/57 L 164/54 H Pulse Oximetry 100 99 Oxygen Delivery Room Air 12/31/24 04:48 Temperature 98.6 F Pulse Rate 60 Respiratory Rate 16 Blood Pressure 140/55 L Pulse Oximetry 96 Oxygen Delivery Intake/Output Intake/Output: Intake & Output 12/28/24 12/29/24 12/30/24 12/31/24 23:59 23:59 23:59 23:59 Intake Total 2250 3555 930 820 Output Total 1000 2800 1950 Balance 1250 755 -1020 820 Meds/Results Medications: Active Medications Generic Name Dose Route Start Last Admin Trade Name Freq PRN Reason Stop Dose Admin Acetaminophen 650 mg 12/27/24 22:42 12/30/24 21:14 Acetaminophen 325 Mg Tablet PO 650 mg Q4H PRN Administration Mild Pain (1-3) or Fever Amlodipine Besylate 10 mg 12/28/24 09:00 12/30/24 08:14 Amlodipine Besylate 10 Mg Tablet PO 10 mg DAILY KELSY Administration Aspirin 81 mg 12/31/24 09:00 Aspirin 81 Mg Enteric Tablet PO QAM KELSY Atorvastatin Calcium 20 mg 12/28/24 09:00 12/30/24 08:14 Atorvastatin 20 Mg Tablet PO 20 mg DAILY KELSY Administration Calcium Carbonate 500 mg 12/28/24 09:00 12/30/24 08:15 Calcium/Vitamin D 500 Mg/5 Mcg (200 I.U.) Tablet PO 500 mg DAILY KELSY Administration Clorazepate Dipotassium 7.5 mg 12/28/24 09:00 12/30/24 17:20 Clorazepate Dipotassium (*Crx) 7.5 Mg Tablet PO 7.5 mg TID KELSY Administration Dextrose 12.5 gm 12/27/24 22:42 Dextrose 50% 25 Gm/50 Ml Syringe IV PUSH PRN PRN Hypoglycemia Protocol Glucose 15 gm 12/27/24 22:42 Glucose Oral Gel 15 Gm Of Glucse In 37.5 Gm Tube PO PRN PRN Hypoglycemia Protocol Dextrose 1,000 mls @ 100 mls/hr 12/27/24 22:42 Dextrose 5% 1,000 Ml IVPB PRN PRN Hypoglycemia Protocol Ceftriaxone Sodium 2 gm/ 100 mls @ 200 mls/hr 12/30/24 15:00 12/30/24 15:13 Sodium Chloride IVPB Infused Q24H KELSY Infusion Levetiracetam 750 mg 12/28/24 09:00 12/30/24 21:14 Levetiracetam 250 Mg Tablet PO 750 mg Q12HR KELSY Administration Loratadine 10 mg 12/28/24 09:00 12/30/24 08:15 Loratadine 10 Mg Tablet PO 10 mg DAILY KELSY Administration Melatonin 5 mg 12/28/24 01:30 12/30/24 21:15 Melatonin 5 Mg Tablet PO 5 mg HS KELSY Administration Metoprolol Tartrate 50 mg 12/28/24 09:00 12/30/24 08:15 Metoprolol Tartrate 50 Mg Tab PO 50 mg DAILY KELSY Administration Ondansetron HCl 4 mg 12/27/24 22:42 Ondansetron Inj 4 Mg/2 Ml Vial IV PUSH Q4H PRN Nausea Pantoprazole Sodium 40 mg 12/28/24 09:00 12/30/24 08:15 Pantoprazole 40 Mg Tablet PO 40 mg QAM KELSY Administration Pyridostigmine [place] 120 mg 12/28/24 12:00 12/31/24 05:23 Pyridostigmine [place] 60 Mg Tablet PO 120 mg Q6HR KELSY Administration Tramadol HCl 25 mg 12/28/24 12:00 Tramadol Hcl (*Crx) 25 Mg Tablet PO Q6H PRN Pain Rated 4-6 Valacyclovir HCl 1,000 mg 12/28/24 06:00 12/31/24 05:23 Valacyclovir Hcl 500 Mg Tablet PO 1,000 mg Q8HR KELSY Administration Radiology Results: ITS Impressions Chest X-Ray 12/27/24 19:06 IMPRESSION: 1. No acute cardiopulmonary findings. Head CT 12/27/24 19:12 IMPRESSION: 1. No acute intracranial findings. Carotid Doppler Study 12/30/24 19:47 IMPRESSION: 1. No hemodynamically significant ICA stenosis (i.e., if any stenosis, less than 50%). 2. Normal bilateral antegrade vertebral artery flow. Stenosis measured by Society of Radiologists in Ultrasound (SRU) criteria. Labs Labs: Laboratory Results - last 24 hr 12/28/24 12/31/24 05:03 04:40 Triglycerides 72 Cholesterol 112 LDL Cholesterol Direct 42 HDL Direct 63 Levetiracetam 11.5
[2024-12-31 09:42] VITALS: PULSE 77
[2024-12-31] MEDS: PANTOPRAZOLE 40 MG TABLET PO (09:42)
[2024-12-31] MEDS: ATORVASTATIN 20 MG TABLET PO (09:42)
[2024-12-31] MEDS: ACETAMINOPHEN 325 MG TABLET 650 MG PO ×2 (09:42→17:52)
[2024-12-31] MEDS: CALCIUM/VITAMIN D 500 MG/5 MCG (200 I.U.) TABLET PO (09:42)
[2024-12-31] MEDS: METOPROLOL TARTRATE 50 MG TAB PO (09:42)
[2024-12-31] MEDS: CLORAZEPATE DIPOTASSIUM (*CRX) 7.5 MG TABLET PO ×3 (09:43→17:51)
[2024-12-31] MEDS: LORATADINE 10 MG TABLET PO (09:43)
[2024-12-31] MEDS: ASPIRIN 81 MG ENTERIC TABLET PO (09:43)
[2024-12-31 14:00] VITALS: BP 133/50; PULSE 70; RESP 16; TEMP 36.6; O2SAT 97
[2024-12-31] MEDS: cefTRIAXone 2 GM in SODIUM CHLORIDE 0.9% IV 100 ML 200 ML IVPB (14:35)
[2024-12-31 21:14] VITALS: BP 126/60; PULSE 62; RESP 18; TEMP 36.5; O2SAT 98
[2024-12-31] MEDS: MELATONIN 5 MG TABLET PO (21:27)
[2025-01-01 05:40] VITALS: BP 155/57; PULSE 65; RESP 16; TEMP 36.6; O2SAT 96
[2025-01-01 09:12] LABS: Hematocrit 39.9 % (37.0-47.0); Hemoglobin 13.1 g/dL (12.0-15.0); Immature Granulocyte Percent A 0.3 % (0-0.5); Lymphocytes Absolute Auto 2.29 K/mm3 (0.9-3.2); Mean Corpuscular HGB Conc 32.8 g/dl (32-36); Mean Corpuscular Hemoglobin 31.8 pg (26-34); Mean Corpuscular Volume 96.8 fl (80-100); Nucleated Red Blood Cells Absolute Auto 0.000 K/mm3 (0.0-0.012); Nucleated Red Blood Cells Perc 0.0 % (0.0-0.2); Platelet Count Result 245 k/mm3 (150-375); Red Blood Count 4.12 M/mm3 (4.2-5.4); White Blood Count 6.4 K/mm3 (4.5-10.0)
[2025-01-01] MEDS: ACETAMINOPHEN 325 MG TABLET 650 MG PO (09:26)
[2025-01-01 09:27] VITALS: PULSE 77
[2025-01-01] MEDS: ATORVASTATIN 20 MG TABLET PO (09:27)
[2025-01-01] MEDS: LORATADINE 10 MG TABLET PO (09:27)
[2025-01-01] MEDS: CALCIUM/VITAMIN D 500 MG/5 MCG (200 I.U.) TABLET PO (09:27)
[2025-01-01] MEDS: PANTOPRAZOLE 40 MG TABLET PO (09:27)
[2025-01-01] MEDS: METOPROLOL TARTRATE 50 MG TAB PO (09:27)
[2025-01-01] MEDS: CLORAZEPATE DIPOTASSIUM (*CRX) 7.5 MG TABLET PO ×3 (09:27→18:05)
[2025-01-01 09:38] LABS: Anion Gap 2 mmol/L (4-12); Blood Urea Nitrogen 8 mg/dL (7-17); Calcium 9.0 mg/dL (8.4-10.2); Carbon Dioxide 29 mmol/L (22-30); Chloride 104 mmol/L (98-107); Estimated CRCL calculation 37 ml/min; Estimated Glomerular Filt Rate > 60; Glucose 126 mg/dL (65-110); Magnesium 1.9 mg/dL (1.6-2.3); Potassium 3.5 mmol/L (3.4-5.0); Sodium 135 mmol/L (137-145)
--- NOTE | 2025-01-01 14:31 | P.PNIM_ITS ---
Progress Note: A&P Assessment and Plan (1) Hypertension: Code(s): I10 - Essential (primary) hypertension Status: Acute (2) Hyponatremia: Code(s): E87.1 - Hypo-osmolality and hyponatremia Status: Acute (3) Herpes zoster of neck: Code(s): B02.9 - Zoster without complications Status: Acute (4) Cellulitis of neck: Code(s): L03.221 - Cellulitis of neck Status: Acute (5) Seizure disorder: Code(s): G40.909 - Epilepsy, unspecified, not intractable, without status epilepticus Status: Acute (6) Myasthenia gravis: Code(s): G70.00 - Myasthenia gravis without (acute) exacerbation Status: Acute (7) Generalized weakness: Code(s): R53.1 - Weakness Status: Acute Plan 89-year-old female patient who came to the emergency room due to increased weakness. PMH hyperlipidemia, hypertension, breast cancer, seizure disorder, CVA, anxiety, myasthenia gravis. The patient initially felt that she was weak from receiving an influenza vaccine last week in her primary care doctor's office. She stated that she was too weak to ambulate appropriately. She does live home alone and she fell 2 days ago. She denied losing consciousness or hitting her head. She also self reported temperature of 101?. She also noticed a rash to the left side of her neck that radiated to her left jaw line and cheek. 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 Her head CT was read as no acute intracranial findings. Her white count was noted to be 20.8. Neutrophil percentage 86%. Her sodium levels 127 without any previous labs for comparison. Urinalysis shows 1+ ketones with positive urine nitrates and 2+ leukocyte esterase. Patient denies any urinary symptoms at this time. The patient was started on Ancef for possible cellulitis the left ear lobe. She was also started on Valtrex for herpes zoster and started on IV fluids. Admitted on 12/28/2024 ----- Weakness and falls: Head CT on admission on 12/27/2024 without acute findings. No evidence of stroke. Patient reported poor oral intake, likely due to dehydration. Has improved significantly with IV fluids, stop IV fluids on 12/29/2024. Continue PT/OT evaluations, recommending outpatient therapy. She politely refuses to use to follow arm. She would like to get up at [place] with her walker. She is aware of the risk of fall. Hyponatremia: Could be partially due to hypovolemia/dehydration. Improved status post IV fluids, since discontinued. She is also on Keppra long-term which can cause hyponatremia. Continue to monitor. Urinalysis on admission abnormal on 12/27/2024. Urine culture negative. Gram-positive cocci Bacteremia: Blood cultures drawn on admission, resulting positive on 12/29/2024. First blood culture Gram-positive cocci in anaerobic bottle, and blood culture Gram-positive cocci in aerobic bottle. On 12/29/2024 change cefazolin to vancomycin, switched to ceftriaxone on 12/30/2024. Of note, prior to blood culture positivity the patient had been stable without any leukocytosis or fever. Repeat blood cultures obtained on 12/31/2024, continue to monitor for negativity. Shingles of the neck/cellulitis: Present on admission. Continue valacyclovir 1 g q.8 hours for total 10 days. Cefazolin changed to vancomycin and then ceftriaxone due to bacteremia. Improving, vesicles crusted over. Discontinue contact precautions. Anxiety disorder: Continue NETWORK PLANNER Tranxene Myasthenia gravis: On 12/29/2024 patient complained of hoarseness of voice. She has no other symptomatology to indicate myasthenia crisis. Continue pyridostigmine 120 mg q.6 hours. Neurology mentation has been noted. Lipid panel and carotid Doppler has been obtained. Hoarseness of voice resolved on 01 01 25 History of CVA remotely right-sided weakness speech difficulties in seizure, all resolved. Continue NETWORK PLANNER atorvastatin 20 mg p.o. q.day. continue NETWORK PLANNER Keppra. Started on aspirin 81 mg p.o. q.a.m.. Essential hypertension: Continue NETWORK PLANNER amlodipine 10 mg p.o. q.day. Monitor blood pressure. At goal. ----- Prior to admission patient lives at home, she is independent. Patient wishes to be full code. Saline lock IV. Continue NETWORK PLANNER PPI Continue NETWORK PLANNER atorvastatin Aspiration precaution. Continue PT/OT evaluations, plan is to discharge home with outpatient therapy. Time Spent With Patient Time with patient: Greater than 35 minutes Subjective Date/time seen: 01/01/25 14:31 Interval history: Patient's voice is now normal she reports. She feels constipated and would like a 1 time laxative. She does not want to fall alarm. She has no complaints. Review of Systems Review of Systems: All systems reviewed & are unremarkable except as noted in HPI and below (Subjective) Exam Const: General: comfortable and no acute distress Other: A&O x3 HENMT: Mouth: Yes moist mucous membranes Other: orofacial muscles intact. Eyes: Pupils: Equal, round and reactive pupils present Neck: Neck: supple Resp: Effort & Inspection: normal respiratory effort Auscultation: clear to auscultation bilaterally Cardio: Rate: regular rate Rhythm: regular rhythm Heart sounds: no murmurs GI: Inspection: non-distended GI Palp: Yes Soft to palpation and No Guarding due to palpation present (GI) Skin: Other: Erythema greatly improved, vesicles are crusted over. No tenderness to palpation. Neuro: Motor exam (neuro): 5/5 motor strength present throughout Extrem: General: no edema Objective Data Vital Signs Vital Signs: Vital Signs - 24 hr 12/31/24 20:00 12/31/24 21:14 01/01/25 05:40 Temperature 97.7 F 97.9 F Pulse Rate 62 65 Respiratory Rate 18 16 Blood Pressure 126/60 155/57 H Pulse Oximetry 98 96 Oxygen Delivery Room Air 01/01/25 08:00 01/01/25 09:27 Temperature Pulse Rate 77 Respiratory Rate Blood Pressure Pulse Oximetry Oxygen Delivery Room Air Intake/Output Intake/Output: Intake & Output 12/29/24 12/30/24 12/31/24 01/01/25 23:59 23:59 23:59 23:59 Intake Total 3555 930 1420 1000 Output Total 2800 1950 150 Balance 755 -1020 1270 1000 Meds/Results Medications: Active Medications Generic Name Dose Route Start Last Admin Trade Name Freq PRN Reason Stop Dose Admin Acetaminophen 650 mg 12/27/24 22:42 01/01/25 09:26 Acetaminophen 325 Mg Tablet PO 650 mg Q4H PRN Administration Mild Pain (1-3) or Fever Amlodipine Besylate 10 mg 12/28/24 09:00 01/01/25 09:27 Amlodipine Besylate 10 Mg Tablet PO 10 mg DAILY KELSY Administration Aspirin 81 mg 12/31/24 09:00 01/01/25 09:42 Aspirin 81 Mg Enteric Tablet PO Not Given [facility] [place] Atorvastatin Calcium 20 mg 12/28/24 09:00 01/01/25 09:27 Atorvastatin 20 Mg Tablet PO 20 mg DAILY KELSY Administration Calcium Carbonate 500 mg 12/28/24 09:00 01/01/25 09:27 Calcium/Vitamin D 500 Mg/5 Mcg (200 I.U.) Tablet PO 500 mg DAILY KELSY Administration Clorazepate Dipotassium 7.5 mg 12/28/24 09:00 01/01/25 09:27 Clorazepate Dipotassium (*Crx) 7.5 Mg Tablet PO 7.5 mg TID KELSY Administration Dextrose 12.5 gm 12/27/24 22:42 Dextrose 50% 25 Gm/50 Ml Syringe IV PUSH PRN PRN Hypoglycemia Protocol Glucose 15 gm 12/27/24 22:42 Glucose Oral Gel 15 Gm Of Glucse In 37.5 Gm Tube PO PRN PRN Hypoglycemia Protocol Dextrose 1,000 mls @ 100 mls/hr 12/27/24 22:42 Dextrose 5% 1,000 Ml IVPB PRN PRN Hypoglycemia Protocol Ceftriaxone Sodium 2 gm/ 100 mls @ 200 mls/hr 12/30/24 15:00 12/31/24 14:35 Sodium Chloride IVPB 01/04/25 15:29 200 mls/hr Q24H KELSY Administration Levetiracetam 750 mg 12/28/24 09:00 01/01/25 09:27 Levetiracetam 250 Mg Tablet PO 750 mg Q12HR KELSY Administration Loratadine 10 mg 12/28/24 09:00 01/01/25 09:27 Loratadine 10 Mg Tablet PO 10 mg DAILY KELSY Administration Melatonin 5 mg 12/28/24 01:30 12/31/24 21:27 Melatonin 5 Mg Tablet PO 5 mg HS [facility] Administration Metoprolol Tartrate 50 mg 12/28/24 09:00 01/01/25 09:27 Metoprolol Tartrate 50 Mg Tab PO 50 mg DAILY KELSY Administration Ondansetron HCl 4 mg 12/27/24 22:42 Ondansetron Inj 4 Mg/2 Ml Vial IV PUSH Q4H PRN Nausea Pantoprazole Sodium 40 mg 12/28/24 09:00 01/01/25 09:27 Pantoprazole 40 Mg Tablet PO 40 mg QAM KELSY Administration Polyethylene Glycol 17 gm 01/01/25 14:30 Polyethylene Glycol 3350 17 Gm Powd.Pack PO 01/01/25 14:31 ONCE ONE Pyridostigmine [place] 120 mg 12/28/24 12:00 01/01/25 12:17 Pyridostigmine [place] 60 Mg Tablet PO 120 mg Q6HR KELSY Administration Tramadol HCl 25 mg 12/28/24 12:00 Tramadol Hcl (*Crx) 25 Mg Tablet PO Q6H PRN Pain Rated 4-6 Valacyclovir HCl 1,000 mg 12/31/24 21:00 01/01/25 09:27 Valacyclovir Hcl 500 Mg Tablet PO 01/06/25 21:01 1,000 mg Q12HR KELSY Administration Radiology Results: ITS Impressions Chest X-Ray 12/27/24 19:06 IMPRESSION: 1. No acute cardiopulmonary findings. Head CT 12/27/24 19:12 IMPRESSION: 1. No acute intracranial findings. Carotid Doppler Study 12/30/24 19:47 IMPRESSION: 1. No hemodynamically significant ICA stenosis (i.e., if any stenosis, less than 50%). 2. Normal bilateral antegrade vertebral artery flow. Stenosis measured by Society of Radiologists in Ultrasound (SRU) criteria. Labs Labs: Laboratory Results - last 24 hr 01/01/25 08:56 WBC 6.4 RBC 4.12 L Hgb 13.1 Hct 39.9 MCV 96.8 MCH 31.8 MCHC 32.8 RDW 12.6 Plt Count 245 MPV 9.1 Immature Gran % (Auto) 0.3 Neut % (Auto) 53.6 Lymph % (Auto) 35.8 [place] % (Auto) 7.2 Eos % (Auto) 2.3 Baso % (Auto) 0.8 Lymph # (Auto) 2.29 [place] # (Auto) 0.5 Eos # (Auto) 0.2 Baso # (Auto) 0.1 Abs Immat Gran (auto) 0.02 Absolute Neuts (auto) 3.4 Absolute Nucleated RBC 0.000 Nucleated RBC % 0.0 Sodium 135 L Potassium 3.5 Chloride 104 Carbon Dioxide 29 Anion Gap 2 L BUN 8 Creatinine 0.74 Estim Creat Clear Calc 37 Estimated GFR > 60 Glucose 126 H Calcium 9.0 Magnesium 1.9
[2025-01-01] MEDS: cefTRIAXone 2 GM in SODIUM CHLORIDE 0.9% IV 100 ML 200 ML IVPB (14:57)
--- NOTE | 2025-01-01 15:53 | PC.NURSE ---
MD Mustafa made RN aware that patient wanted fall risk to be removed. RN told MD about patient's last fall being with admission. MD is aware of patient refusing bed alarm. Patient is aware of the risks and is still wanting to be without it.
[2025-01-01 16:00] VITALS: BP 141/55; PULSE 61; RESP 16; TEMP 36.5; O2SAT 99
[2025-01-01 20:00] VITALS: O2SAT 98
[2025-01-01 22:00] VITALS: BP 156/52; PULSE 62; RESP 18; TEMP 36.7; O2SAT 98
[2025-01-01] MEDS: MELATONIN 5 MG TABLET PO (22:03)
[2025-01-02 06:00] VITALS: BP 156/53; PULSE 67; RESP 18; TEMP 36.4; O2SAT 98
[2025-01-02] MEDS: PANTOPRAZOLE 40 MG TABLET PO (08:53)
[2025-01-02] MEDS: CLORAZEPATE DIPOTASSIUM (*CRX) 7.5 MG TABLET PO ×3 (08:53→17:53)
[2025-01-02 08:54] VITALS: PULSE 78
[2025-01-02] MEDS: ATORVASTATIN 20 MG TABLET PO (08:54)
[2025-01-02] MEDS: CALCIUM/VITAMIN D 500 MG/5 MCG (200 I.U.) TABLET PO (08:54)
[2025-01-02] MEDS: LORATADINE 10 MG TABLET PO (08:54)
[2025-01-02] MEDS: METOPROLOL TARTRATE 50 MG TAB PO (08:54)
--- NOTE | 2025-01-02 15:45 | PM.IMPN ---
Progress Note: A&P Assessment and Plan (1) Hypertension: Code(s): I10 - Essential (primary) hypertension Status: Acute (2) Hyponatremia: Code(s): E87.1 - Hypo-osmolality and hyponatremia Status: Acute (3) Herpes zoster of neck: Code(s): B02.9 - Zoster without complications Status: Acute (4) Cellulitis of neck: Code(s): L03.221 - Cellulitis of neck Status: Acute (5) Seizure disorder: Code(s): G40.909 - Epilepsy, unspecified, not intractable, without status epilepticus Status: Acute (6) Myasthenia gravis: Code(s): G70.00 - Myasthenia gravis without (acute) exacerbation Status: Acute (7) Generalized weakness: Code(s): R53.1 - Weakness Status: Acute Plan 89-year-old female patient who came to the emergency room due to increased weakness. 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 The patient initially felt that she was weak from receiving an influenza vaccine last week in her primary care doctor's office. She stated that she was too weak to ambulate appropriately. She does live home alone and she fell 2 days ago. She denied losing consciousness or hitting her head. She also self reported temperature of 101?. She also noticed a rash to the left side of her neck that radiated to her left jaw line and cheek. 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 Her head CT was read as no acute intracranial findings. Her white count was noted to be 20.8. Neutrophil percentage 86%. Her sodium levels 127 without any previous labs for comparison. Urinalysis shows 1+ ketones with positive urine nitrates and 2+ leukocyte esterase. Patient denies any urinary symptoms at this time. The patient was started on Ancef for possible cellulitis the left ear lobe. She was also started on Valtrex for herpes zoster and started on IV fluids. Admitted on 12/28/2024 ----- Weakness and falls: Head CT on admission on 12/27/2024 without acute findings. No evidence of stroke. Patient reported poor oral intake, likely due to dehydration. Has improved significantly with IV fluids, stop IV fluids on 12/29/2024. Continue PT/OT evaluations, recommending outpatient therapy. She politely refuses to use to follow follow arm, risks discussed. Hyponatremia: Could be partially due to hypovolemia/dehydration. Improved status post IV fluids, since discontinued. She is also on Keppra long-term which can cause hyponatremia. Continue to monitor. Urinalysis on admission abnormal on 12/27/2024. Urine culture negative. Gram-positive cocci Bacteremia: Blood cultures drawn on admission, resulting positive on 12/29/2024. First blood culture Gram-positive cocci in anaerobic bottle, and blood culture Gram-positive cocci in aerobic bottle. On 12/29/2024 change cefazolin to vancomycin, switched to ceftriaxone on 12/30/2024. Of note, prior to blood culture positivity the patient had been stable without any leukocytosis or fever. -Repeat blood cultures obtained on 12/31/2024, discharge home once negative for 48-72 hours. May have to call the lab as there had been processing delays. Shingles of the neck/cellulitis: Present on admission. Continue valacyclovir 1 g q.8 hours for total 10 days. Cefazolin changed to vancomycin and then ceftriaxone due to bacteremia. Improving, vesicles crusted over. Discontinue contact precautions. Anxiety disorder: Continue CATALYTIC CONVERTER OPERATOR Tranxene Myasthenia gravis: On 12/29/2024 patient complained of hoarseness of voice. She has no other symptomatology to indicate myasthenia crisis. Continue pyridostigmine 120 mg q.6 hours. Neurology mentation has been noted. Lipid panel and carotid Doppler has been obtained. Resolved on 01/01/2025. History of CVA remotely right-sided weakness speech difficulties in seizure, all resolved. Continue CATALYTIC CONVERTER OPERATOR atorvastatin 20 mg p.o. q.day. continue CATALYTIC CONVERTER OPERATOR Keppra. Started on aspirin 81 mg p.o. q.a.m.. Essential hypertension: Continue CATALYTIC CONVERTER OPERATOR amlodipine 10 mg p.o. q.day. Monitor blood pressure. At goal. Constipation: Prior to admission the patient takes Colestid night improved juice in the morning. Continue Colace daily and MiraLax daily p.r.n.. ----- Prior to admission patient lives at home, she is independent. Patient wishes to be full code. Saline lock IV. Continue CATALYTIC CONVERTER OPERATOR PPI Continue CATALYTIC CONVERTER OPERATOR atorvastatin Aspiration precaution. Continue PT/OT evaluations, plan is to discharge home with outpatient therapy. Time Spent With Patient Time with patient: Greater than 35 minutes Subjective Date/time seen: 01/02/25 15:45 Interval history: No major acute overnight events. Patient had a small bowel movement today, she is adamant she would like to take her stool softener continue MiraLax daily. That is her main concern otherwise she has no complaints. Review of Systems Review of Systems: All systems reviewed & are unremarkable except as noted in HPI and below (Subjective) Exam Const: General: comfortable and no acute distress Other: A&O x3 HENMT: Mouth: Yes moist mucous membranes Other: orofacial muscles intact. Eyes: Pupils: Equal, round and reactive pupils present Neck: Neck: supple Resp: Effort & Inspection: normal respiratory effort Auscultation: clear to auscultation bilaterally Cardio: Rate: regular rate Rhythm: regular rhythm Heart sounds: no murmurs GI: Inspection: non-distended GI Palp: Yes Soft to palpation and No Guarding due to palpation present (GI) Skin: Other: Erythema greatly improved, vesicles are crusted over. No tenderness to palpation. Neuro: Motor exam (neuro): 5/5 motor strength present throughout Extrem: General: no edema Objective Data Vital Signs Vital Signs: Vital Signs - 24 hr 01/01/25 16:00 01/01/25 20:00 01/01/25 22:00 Temperature 97.7 F 98.1 F Pulse Rate 61 62 Respiratory Rate 16 18 Blood Pressure 141/55 H 156/52 H Pulse Oximetry 99 98 98 Oxygen Delivery Room Air 01/02/25 06:00 01/02/25 08:54 01/02/25 09:00 Temperature 97.5 F L Pulse Rate 67 78 Respiratory Rate 18 Blood Pressure 156/53 H Pulse Oximetry 98 Oxygen Delivery Room Air Intake/Output Intake/Output: Intake & Output 12/30/24 12/31/24 01/01/25 01/02/25 23:59 23:59 23:59 23:59 Intake Total 930 1520 1470 220 Output Total 1950 150 Balance -1020 1370 1470 220 Meds/Results Medications: Active Medications Generic Name Dose Route Start Last Admin Trade Name Freq PRN Reason Stop Dose Admin Acetaminophen 650 mg 12/27/24 22:42 01/01/25 09:26 Acetaminophen 325 Mg Tablet PO 650 mg Q4H PRN Administration Mild Pain (1-3) or Fever Amlodipine Besylate 10 mg 12/28/24 09:00 01/02/25 08:54 Amlodipine Besylate 10 Mg Tablet PO 10 mg DAILY KELSY Administration Aspirin 81 mg 12/31/24 09:00 01/02/25 08:55 Aspirin 81 Mg Enteric Tablet PO Not Given QAM [facility] Atorvastatin Calcium 20 mg 12/28/24 09:00 01/02/25 08:54 Atorvastatin 20 Mg Tablet PO 20 mg DAILY KELSY Administration Calcium Carbonate 500 mg 12/28/24 09:00 01/02/25 08:54 Calcium/Vitamin D 500 Mg/5 Mcg (200 I.U.) Tablet PO 500 mg DAILY KELSY Administration Clorazepate Dipotassium 7.5 mg 12/28/24 09:00 01/02/25 12:35 Clorazepate Dipotassium (*Crx) 7.5 Mg Tablet PO 7.5 mg TID KELSY Administration Dextrose 12.5 gm 12/27/24 22:42 Dextrose 50% 25 Gm/50 Ml Syringe IV PUSH PRN PRN Hypoglycemia Protocol Glucose 15 gm 12/27/24 22:42 Glucose Oral Gel 15 Gm Of Glucse In 37.5 Gm Tube PO PRN PRN Hypoglycemia Protocol Dextrose 1,000 mls @ 100 mls/hr 12/27/24 22:42 Dextrose 5% 1,000 Ml IVPB PRN PRN Hypoglycemia Protocol Ceftriaxone Sodium 2 gm/ 100 mls @ 200 mls/hr 12/30/24 15:00 01/01/25 14:57 Sodium Chloride IVPB 01/04/25 15:29 200 mls/hr Q24H KELSY Administration Levetiracetam 750 mg 12/28/24 09:00 01/02/25 08:53 Levetiracetam 250 Mg Tablet PO 750 mg Q12HR KELSY Administration Loratadine 10 mg 12/28/24 09:00 01/02/25 08:54 Loratadine 10 Mg Tablet PO 10 mg DAILY KELSY Administration Melatonin 5 mg 12/28/24 01:30 01/01/25 22:03 Melatonin 5 Mg Tablet PO 5 mg HS KELSY Administration Metoprolol Tartrate 50 mg 12/28/24 09:00 01/02/25 08:54 Metoprolol Tartrate 50 Mg Tab PO 50 mg DAILY KELSY Administration Ondansetron HCl 4 mg 12/27/24 22:42 Ondansetron Inj 4 Mg/2 Ml Vial IV PUSH Q4H PRN Nausea Pantoprazole Sodium 40 mg 12/28/24 09:00 01/02/25 08:53 Pantoprazole 40 Mg Tablet PO 40 mg QAM KELSY Administration Polyethylene Glycol 17 gm 01/02/25 12:00 01/02/25 12:32 Polyethylene Glycol 3350 17 Gm Powd.Pack PO 17 gm QAM PRN Administration Constipation Pyridostigmine [place] 120 mg 12/28/24 12:00 01/02/25 12:32 Pyridostigmine [place] 60 Mg Tablet PO 120 mg Q6HR KELSY Administration Tramadol HCl 25 mg 12/28/24 12:00 Tramadol Hcl (*Crx) 25 Mg Tablet PO Q6H PRN Pain Rated 4-6 Valacyclovir HCl 1,000 mg 12/31/24 21:00 01/02/25 08:53 Valacyclovir Hcl 500 Mg Tablet PO 01/06/25 21:01 1,000 mg Q12HR KELSY Administration Radiology Results: ITS Impressions Chest X-Ray 12/27/24 19:06 IMPRESSION: 1. No acute cardiopulmonary findings. Head CT 12/27/24 19:12 IMPRESSION: 1. No acute intracranial findings. Carotid Doppler Study 12/30/24 19:47 IMPRESSION: 1. No hemodynamically significant ICA stenosis (i.e., if any stenosis, less than 50%). 2. Normal bilateral antegrade vertebral artery flow. Stenosis measured by Society of Radiologists in Ultrasound (SRU) criteria. Labs Labs: Laboratory Results - last 24 hr 01/01/25 08:56 WBC 6.4 RBC 4.12 L Hgb 13.1 Hct 39.9 MCV 96.8 MCH 31.8 MCHC 32.8 RDW 12.6 Plt Count 245 MPV 9.1 Immature Gran % (Auto) 0.3 Neut % (Auto) 53.6 Lymph % (Auto) 35.8 [place] % (Auto) 7.2 Eos % (Auto) 2.3 Baso % (Auto) 0.8 Lymph # (Auto) 2.29 [place] # (Auto) 0.5 Eos # (Auto) 0.2 Baso # (Auto) 0.1 Abs Immat Gran (auto) 0.02 Absolute Neuts (auto) 3.4 Absolute Nucleated RBC 0.000 Nucleated RBC % 0.0 Sodium 135 L Potassium 3.5 Chloride 104 Carbon Dioxide 29 Anion Gap 2 L BUN 8 Creatinine 0.74 Estim Creat Clear Calc 37 Estimated GFR > 60 Glucose 126 H Calcium 9.0 Magnesium 1.9
[2025-01-02] MEDS: cefTRIAXone 2 GM in SODIUM CHLORIDE 0.9% IV 100 ML 200 ML IVPB (15:48)
[2025-01-02 16:17] VITALS: BP 140/51; PULSE 65; RESP 18; TEMP 36.6; O2SAT 98
[2025-01-02] MEDS: DOCUSATE SODIUM 100 MG CAPSULE PO (18:10)
[2025-01-02 21:56] VITALS: BP 151/56; PULSE 60; RESP 12; TEMP 36.3; O2SAT 95
[2025-01-02] MEDS: MELATONIN 5 MG TABLET PO (21:56)
--- NOTE | 2025-01-03 | ECHO_ITS ---
Patient Info Name: Paige Barillas Age: 89 years : 1935 Gender: Female Ht: 60 in Wt: 130 lbs BSA: 1.59 m2 HR: 58 bpm BP: 146 / 47 mmHg Technical Quality: Good Exam Date: 01/03/2025 10:51 AM Patient Status: I Admit Date: 12/28/2024 Exam Type: CA echo doppler color flow Complete two-dimensional, color flow and Doppler transthoracic echocardiogram is performed. Staff Referring Physician: Jania Jordan Deputy Felony Clerk: Darlene Larry Attending Provider: Matias Marshall MD Summary 1. Complete two-dimensional, color flow and Doppler transthoracic echocardiogram is performed. 2. Left ventricular systolic function is normal, estimated at 60-65. 3. The left ventricular diastolic function is grade I diastolic dysfunction. 4. There is mildly increased left ventricular wall thickness. 5. There is mild aortic valve calcification. 6. There is mild mitral valve calcification. 7. There is mild tricuspid valve regurgitation. 8. No pulmonary hypertension, estimated pulmonary arterial systolic pressure is 30 mmHg. Left Ventricle Left ventricular chamber dimension is normal. Left ventricular systolic function is normal, estimated at 60-65. There is mildly increased left ventricular wall thickness. Left ventricular septal wall motion is normal. The left ventricular diastolic function is grade I diastolic dysfunction. Right Ventricle Right ventricular chamber dimension is normal. Right ventricular systolic function is normal. Left Atria Left atrial chamber dimension is normal. Right Atria Right atrial chamber dimension is normal. Aortic Valve The aortic valve is trileaflet. There is no aortic valve sclerosis. There is no aortic valve stenosis. There is no aortic valve regurgitation. There is mild aortic valve calcification. Pulmonic Valve The pulmonic valve is normal. There is no pulmonic valve stenosis. There is no pulmonic regurgitation. Mitral Valve The mitral valve has normal leaflets. There is no mitral valve stenosis. There is no mitral valve regurgitation. There is mild mitral valve calcification. Tricuspid Valve The tricuspid valve leaflets are normal. There is no significant tricuspid valve stenosis. There is mild tricuspid valve regurgitation. No pulmonary hypertension, estimated pulmonary arterial systolic pressure is 30 mmHg. Pericardium/Pleural The pericardium appears normal. There is no pericardial effusion. Inferior Vena Cava Normal inferior vena cava with >50% collapse upon inspiration consistent with normal right atrial pressure, 5 mmHg. Aorta The aortic root size at the sinus of Valsalva is normal. The prox ascending aorta size is normal. Left Ventricular Outflow Tract Name Value Normal LVOT 2D LVOT Diameter 1.8 cm LVOT Doppler LVOT Peak Velocity 98 cm/s LVOT Peak Gradient 4 mmHg LVOT Mean Gradient 2 mmHg LVOT VTI 26 cm LVOT VTI/AV VTI Ratio 0.9 LVOT Stroke Volume 65 ml LVOT CO 3.7 l/min LVOT CI 2.3 l/min/m2 Pulmonic Valve Name Value Normal RVOT Doppler RVOT Peak Velocity 57 cm/s RVOT Peak Gradient 1 mmHg PV Doppler PV Peak Velocity 84 cm/s PV Peak Gradient 3 mmHg Mitral Valve Name Value Normal MV Diastolic Function MV E Peak Velocity 78 cm/s MV A Peak Velocity 104 cm/s MV E/A 0.8 MV Decel Time (PW) 306 ms Tricuspid Valve Name Value Normal TV Regurgitation Doppler TR Peak Velocity 249 cm/s TR Peak Gradient 25 mmHg Estimated PAP/RSVP RA Pressure 5 mmHg <=5 PA Systolic Pressure 30 mmHg <36 RV Systolic Pressure 30 mmHg <36 Aorta Name Value Normal Ascending Aorta Ao Root Diameter (MM) 2.8 cm Ao Root Diam Index (MM) 1.8 cm/m2 Aortic Valve Name Value Normal AV Doppler AV Peak Velocity 119 cm/s AV Peak Gradient 6 mmHg AV Mean Gradient 3 mmHg AV VTI 28 cm AV Area (Cont Eq VTI) 2.3 cm2 >=3.0 AV Area (Cont Eq [place]) 2.1 cm2 AV DI ([place]) 0.83 AV Regurgitation 2D LVOT Area 2.5 cm2 Ventricles Name Value Normal LV Dimensions 2D/MM IVS Diastolic Thickness (2D) 0.9 cm 0.6-1.0 LVID Diastole (2D) 3.2 cm 3.8-5.2 LVIW Diastolic Thickness (2D) 1.0 cm 0.6-0.9 LVID Systole (2D) 2.1 cm 2.2-3.5 LVOT Diameter 1.8 cm LV Mass (2D Cubed) 82.86 g 67.00-162.00 LV Mass Index (2D Cubed) 52 g/m2 43-95 Relative Wall Thickness (2D) 0.59 <=0.42 LV Fractional Shortening/Ejection Fraction 2D/MM LV Fractional Shortening (2D) 33 % 27-45 LV EF (2D Teichholz) 63 % LV Diastolic Volume (4C MOD) 48 ml LV EF (4C MOD) 56 % LV Diastolic Volume (2C MOD) 49 ml LV EF (2C MOD) 70 % LV Diastolic Volume (BP MOD) 49 ml 46-106 LV Diastolic Volume Index (BP MOD) 31 ml/m2 29-61 LV Systolic Volume (BP MOD) 18 ml 14-42 LV Systolic Volume Index (BP MOD) 12 ml/m2 8-24 LV EF (BP MOD) 62 % 54-74 LV Diastolic Length (4C) 7.1 cm LV Systolic Length (4C) 5.9 cm LV Stroke Volume (4C MOD) 27 ml Atria Name Value Normal LA Dimensions LA Dimension (MM) 3.8 cm 2.7-3.8 LA Volume (4C A-L) 29 ml LA Volume (BP A-L) 34 ml RA Dimensions RA Systolic Major [place] Length (4C) 4.2 cm 2.2-2.8 RA Area (4C) 10.6 cm2 <=18.0 Report Signatures
[2025-01-03 01:07] LABS: Osmolality, Urine 186 mOsmol/kg (.)
[2025-01-03 05:32] VITALS: BP 146/47; PULSE 67; RESP 16; TEMP 36.8; O2SAT 96
--- NOTE | 2025-01-03 07:21 | PM.IMPN ---
Progress Note: A&P Assessment and Plan (1) Generalized weakness: Code(s): R53.1 - Weakness Status: Acute Assessment and Plan: Cosby that she was too weak to ambulate appropriately. She does live home alone and she fell on 12/26. She denied losing consciousness or hitting her head. Weakness 2/2 dehydration vs infection vs deconditioning vs other Patient reported poor oral intake, weakness likely worsened dehydration. Weakness has improved significantly with IV fluids, IV fluids discontinued on 12/29/2024. UCx and chest xr negative for infection Abdominal exam benign and patient tolerating diet well, denying nausea/vomiting Blood culture showing bacteremia, see plan below Head CT on admission on 12/27/2024 without acute findings. No evidence of stroke. Continue PT/OT evaluations, recommending outpatient therapy. (2) Bacteremia: Code(s): R78.81 - Bacteremia Status: Acute Assessment and Plan: Of note, prior to blood culture positivity the patient had been stable without any leukocytosis or fever. Blood cultures drawn on admission, resulting positive on 12/29/2024 for Gram-positive cocci On 12/29/2024 patient changed from cefazolin to vancomycin Blood cultures grew strep agalactiae on 12/30, switched to ceftriaxone at that time. Repeat blood cultures obtained on 12/31/2024: NGTD Echo obtained to rule out endocarditis Patient remains afebrile with stable vitals and no leukocytosis. (3) Herpes zoster of neck: Code(s): B02.9 - Zoster without complications Status: Acute Assessment and Plan: Present on admission. Continue valacyclovir 1 g q.8 hours for total 10 days. Improving, vesicles crusted over. Discontinue contact precautions. (4) Hyponatremia: Code(s): E87.1 - Hypo-osmolality and hyponatremia Status: Acute Assessment and Plan: Could be partially due to hypovolemia/dehydration. Improved status post IV fluids, since discontinued. She is also on Keppra long-term which can cause hyponatremia. Remains stable. Continue to monitor. (5) Hypertension: Code(s): I10 - Essential (primary) hypertension Status: Acute Assessment and Plan: Chronic, continue home medication - amlodipine 10 mg p.o. daily and metoprolol 50 mg daily - blood pressures reviewed and remain stable (6) Seizure disorder: Code(s): G40.909 - Epilepsy, unspecified, not intractable, without status epilepticus Status: Acute Assessment and Plan: Chronic, continue aubrie (7) Myasthenia gravis: Code(s): G70.00 - Myasthenia gravis without (acute) exacerbation Status: Acute Assessment and Plan: On 12/29/2024 patient complained of hoarseness of voice, Resolved on 01/01/2025. Continues to deny hoarseness on assessment. She has no other symptomatology to indicate myasthenia crisis. Continue pyridostigmine 120 mg q.6 hours. 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 Patient is pleasant sitting up comfortably in bed. She states that she is feeling slightly worse today noticing more weakness and endorsing diarrhea. She continues to tolerate her diet denies any nausea/vomiting or abdominal pain. She has no other complaints denying chest pain, shortness a breath, palpitations, UTI like symptoms, and dizziness/lightheadedness with ambulation. Review of Systems Review of Systems: All systems reviewed & are unremarkable except as noted in HPI and below Exam Narrative: AF HR 67 RR 18 Spo2 98 BP 124/50 General: female in no acute respiratory distress who is nontoxic appearing, sitting up in bed. HEENT: Dried/crusted vesicles to the left neck. No pain or redness. Chest: Lungs are clear to auscultation bilaterally. CV: Heart was regular rate and rhythm. Abd: Abdomen was soft. Nontender. Nondistended. Positive bowel sounds. Ext: No clubbing, cyanosis, or edema. DP pulses bilaterally. Neuro: Patient is alert and oriented x4. Speech is clear. Objective Data Vital Signs Vital Signs: Vital Signs - 24 hr 01/02/25 08:54 01/02/25 09:00 01/02/25 16:17 Temperature 97.8 F Pulse Rate 78 65 Respiratory Rate 18 Blood Pressure 140/51 L Pulse Oximetry 98 Oxygen Delivery Room Air 01/02/25 20:00 01/02/25 21:56 01/03/25 05:32 Temperature 97.3 F L 98.2 F Pulse Rate 60 67 Respiratory Rate 12 16 Blood Pressure 151/56 H 146/47 H Pulse Oximetry 95 96 Oxygen Delivery Room Air Intake/Output Intake/Output: Intake & Output 12/31/24 01/01/25 01/02/25 01/03/25 23:59 23:59 23:59 23:59 Intake Total 1520 1570 750 500 Output Total 150 Balance 1370 1570 750 500 Meds/Results Medications: Active Medications Generic Name Dose Route Start Last Admin Trade Name Freq PRN Reason Stop Dose Admin Acetaminophen 650 mg 12/27/24 22:42 01/01/25 09:26 Acetaminophen 325 Mg Tablet PO 650 mg Q4H PRN Administration Mild Pain (1-3) or Fever Amlodipine Besylate 10 mg 12/28/24 09:00 01/02/25 08:54 Amlodipine Besylate 10 Mg Tablet PO 10 mg DAILY KELSY Administration Aspirin 81 mg 12/31/24 09:00 01/02/25 08:55 Aspirin 81 Mg Enteric Tablet PO Not Given [facility] Atorvastatin Calcium 20 mg 12/28/24 09:00 01/02/25 08:54 Atorvastatin 20 Mg Tablet PO 20 mg DAILY KELSY Administration Calcium Carbonate 500 mg 12/28/24 09:00 01/02/25 08:54 Calcium/Vitamin D 500 Mg/5 Mcg (200 I.U.) Tablet PO 500 mg DAILY KELSY Administration Clorazepate Dipotassium 7.5 mg 12/28/24 09:00 01/02/25 17:53 Clorazepate Dipotassium (*Crx) 7.5 Mg Tablet PO 7.5 mg TID KELSY Administration Dextrose 12.5 gm 12/27/24 22:42 Dextrose 50% 25 Gm/50 Ml Syringe IV PUSH PRN PRN Hypoglycemia Protocol Docusate Sodium 100 mg 01/02/25 21:00 01/02/25 18:10 Docusate Sodium 100 Mg Capsule PO 100 mg QHS KELSY Administration Glucose 15 gm 12/27/24 22:42 Glucose Oral Gel 15 Gm Of Glucse In 37.5 Gm Tube PO PRN PRN Hypoglycemia Protocol Dextrose 1,000 mls @ 100 mls/hr 12/27/24 22:42 Dextrose 5% 1,000 Ml IVPB PRN PRN Hypoglycemia Protocol Ceftriaxone Sodium 2 gm/ 100 mls @ 200 mls/hr 12/30/24 15:00 01/02/25 15:48 Sodium Chloride IVPB 01/04/25 15:29 200 mls/hr Q24H KELSY Administration Levetiracetam 750 mg 12/28/24 09:00 01/02/25 21:55 Levetiracetam 250 Mg Tablet PO 750 mg Q12HR KELSY Administration Loratadine 10 mg 12/28/24 09:00 01/02/25 08:54 Loratadine 10 Mg Tablet PO 10 mg DAILY KELSY Administration Melatonin 5 mg 12/28/24 01:30 01/02/25 21:56 Melatonin 5 Mg Tablet PO 5 mg HS KELSY Administration Metoprolol Tartrate 50 mg 12/28/24 09:00 01/02/25 08:54 Metoprolol Tartrate 50 Mg Tab PO 50 mg DAILY KELSY Administration Ondansetron HCl 4 mg 12/27/24 22:42 Ondansetron Inj 4 Mg/2 Ml Vial IV PUSH Q4H PRN Nausea Pantoprazole Sodium 40 mg 12/28/24 09:00 01/02/25 08:53 Pantoprazole 40 Mg Tablet PO 40 mg QAM KELSY Administration Perflutren Lipid Microsphere 0 ml 01/03/25 07:19 Perflutren Lipid Microspheres 1.5 Ml Vial Diluted To 10 Ml Total Volume IV PUSH 01/06/25 07:19 ONCE PRN adequate visualization Protocol Polyethylene Glycol 17 gm 01/02/25 12:00 01/02/25 12:32 Polyethylene Glycol 3350 17 Gm Powd.Pack PO 17 gm QAM PRN Administration Constipation Pyridostigmine [place] 120 mg 12/28/24 12:00 01/03/25 06:12 Pyridostigmine [place] 60 Mg Tablet PO 120 mg Q6HR KELSY Administration Tramadol HCl 25 mg 12/28/24 12:00 Tramadol Hcl (*Crx) 25 Mg Tablet PO Q6H PRN Pain Rated 4-6 Valacyclovir HCl 1,000 mg 12/31/24 21:00 01/02/25 21:56 Valacyclovir Hcl 500 Mg Tablet PO 01/06/25 21:01 1,000 mg Q12HR KELSY Administration Radiology Results: ITS Impressions Chest X-Ray 12/27/24 19:06 IMPRESSION: 1. No acute cardiopulmonary findings. Head CT 12/27/24 19:12 IMPRESSION: 1. No acute intracranial findings. Carotid Doppler Study 12/30/24 19:47 IMPRESSION: 1. No hemodynamically significant ICA stenosis (i.e., if any stenosis, less than 50%). 2. Normal bilateral antegrade vertebral artery flow. Stenosis measured by Society of Radiologists in Ultrasound (SRU) criteria. Labs Labs: Laboratory Results - last 24 hr 12/28/24 05:12 Urine Osmolality 186 Quality VTE Prophylaxis VTE prophylaxis: mechanical ordered
[2025-01-03 09:01] LABS: Hematocrit 36.6 % (37.0-47.0); Hemoglobin 11.9 g/dL (12.0-15.0); Immature Granulocyte Percent A 0.6 % (0-0.5); Lymphocytes Absolute Auto 2.46 K/mm3 (0.9-3.2); Mean Corpuscular HGB Conc 32.5 g/dl (32-36); Mean Corpuscular Hemoglobin 32.2 pg (26-34); Mean Corpuscular Volume 98.9 fl (80-100); Nucleated Red Blood Cells Absolute Auto 0.000 K/mm3 (0.0-0.012); Nucleated Red Blood Cells Perc 0.0 % (0.0-0.2); Platelet Count Result 245 k/mm3 (150-375); Red Blood Count 3.70 M/mm3 (4.2-5.4); White Blood Count 7.2 K/mm3 (4.5-10.0)
[2025-01-03 09:10] LABS: Anion Gap 0 mmol/L (4-12); Blood Urea Nitrogen 8 mg/dL (7-17); Calcium 8.7 mg/dL (8.4-10.2); Carbon Dioxide 29 mmol/L (22-30); Chloride 104 mmol/L (98-107); Estimated CRCL calculation 41 ml/min; Estimated Glomerular Filt Rate > 60; Glucose 90 mg/dL (65-110); Magnesium 1.8 mg/dL (1.6-2.3); Potassium 3.5 mmol/L (3.4-5.0); Sodium 133 mmol/L (137-145)
[2025-01-03 09:18] VITALS: BP 135/50; PULSE 71
[2025-01-03] MEDS: CLORAZEPATE DIPOTASSIUM (*CRX) 7.5 MG TABLET PO ×3 (09:19→16:37)
[2025-01-03] MEDS: ATORVASTATIN 20 MG TABLET PO (09:19)
[2025-01-03] MEDS: CALCIUM/VITAMIN D 500 MG/5 MCG (200 I.U.) TABLET PO (09:19)
[2025-01-03 09:20] VITALS: PULSE 71
[2025-01-03] MEDS: METOPROLOL TARTRATE 50 MG TAB PO (09:20)
[2025-01-03] MEDS: LORATADINE 10 MG TABLET PO (09:20)
[2025-01-03] MEDS: PANTOPRAZOLE 40 MG TABLET PO (09:20)
--- NOTE | 2025-01-03 11:09 | PCNWS ---
Weekly nutritional screen. Patient is tolerating current Regular diet with adequate intake, 50-100%. No weight loss reported. No nutritional needs at this time.
[2025-01-03 13:20] VITALS: BP 124/50; PULSE 67; RESP 18; TEMP 36.3; O2SAT 98
--- NOTE | 2025-01-03 13:32 | PC.NURSE ---
On 01/03/25, the student, Mauro Infante, provided care and [facility]. I have reviewed the student's documentation and agree with the findings.
[2025-01-03 15:09] LABS: Osmolality, Serum 266 mOsmol/kg (280-301)
[2025-01-03] MEDS: MELATONIN 5 MG TABLET PO (21:07)
[2025-01-03 22:00] VITALS: BP 168/52; PULSE 66; RESP 18; TEMP 36.3; O2SAT 96
[2025-01-04 05:12] LABS: Hematocrit 34.3 % (37.0-47.0); Hemoglobin 11.5 g/dL (12.0-15.0); Mean Corpuscular HGB Conc 33.5 g/dl (32-36); Mean Corpuscular Hemoglobin 32.5 pg (26-34); Mean Corpuscular Volume 96.9 fl (80-100); Platelet Count Result 241 k/mm3 (150-375); Red Blood Count 3.54 M/mm3 (4.2-5.4); White Blood Count 6.8 K/mm3 (4.5-10.0)
[2025-01-04 06:00] VITALS: BP 158/59; PULSE 61; RESP 18; TEMP 36.6; O2SAT 95
[2025-01-04 06:06] LABS: Alanine Aminotransferase 24 U/L (6-35); Albumin Level 3.3 g/dL (3.5-5.1); Alkaline Phosphatase 68 U/L (38-126); Anion Gap -3 mmol/L (4-12); Aspartate Amino Transferase 42 U/L (14-36); Bilirubin,Total 0.4 mg/dL (0.2-1.3); Blood Urea Nitrogen 10 mg/dL (7-17); Calcium 8.8 mg/dL (8.4-10.2); Carbon Dioxide 30 mmol/L (22-30); Chloride 105 mmol/L (98-107); Estimated CRCL calculation 37 ml/min; Estimated Glomerular Filt Rate > 60; Glucose 81 mg/dL (65-110); Potassium 3.6 mmol/L (3.4-5.0); Sodium 132 mmol/L (137-145); Total Protein 5.8 g/dL (6.3-8.2)
[2025-01-04 08:25] VITALS: BP 147/55; PULSE 68; O2SAT 96
[2025-01-04 08:26] VITALS: PULSE 68
[2025-01-04] MEDS: CALCIUM/VITAMIN D 500 MG/5 MCG (200 I.U.) TABLET PO (08:26)
[2025-01-04] MEDS: ATORVASTATIN 20 MG TABLET PO (08:26)
[2025-01-04] MEDS: PANTOPRAZOLE 40 MG TABLET PO (08:26)
[2025-01-04] MEDS: METOPROLOL TARTRATE 50 MG TAB PO (08:26)
[2025-01-04] MEDS: CLORAZEPATE DIPOTASSIUM (*CRX) 7.5 MG TABLET PO ×2 (08:26→12:21)
[2025-01-04] MEDS: LORATADINE 10 MG TABLET PO (08:26)
--- NOTE | 2025-01-04 12:11 | P.DS_ITS ---
DS: Admitting Diagnosis Discharge Date 01/04/2025 Admitting Diagnosis weakness bacteremia herpes zoster of neck hyponatremia htn seizure myasthenia gravis DS: Discharge Diagnosis Discharge Diagnosis (1) Generalized weakness: Code(s): R53.1 - Weakness Status: Acute (2) Bacteremia: Code(s): R78.81 - Bacteremia Status: Acute (3) Herpes zoster of neck: Code(s): B02.9 - Zoster without complications Status: Acute (4) Hyponatremia: Code(s): E87.1 - Hypo-osmolality and hyponatremia Status: Acute (5) Hypertension: Code(s): I10 - Essential (primary) hypertension Status: Acute (6) Seizure disorder: Code(s): G40.909 - Epilepsy, unspecified, not intractable, without status epilepticus Status: Acute (7) Myasthenia gravis: Code(s): G70.00 - Myasthenia gravis without (acute) exacerbation Status: Acute DS: Summary Hospital Course Reason for hospitalization: weakness bacteremia herpes zoster of neck hyponatremia htn seizure myasthenia gravis Hospital Course: 89-year-old female with past medical history of hyperlipidemia, hypertension, breast cancer, seizure disorder, CVA, anxiety, myasthenia gravis, status post colon resection due to recurrent diverticulitis who presented to the hospital for increased weakness. On admission patient felt that she was too weak to ambulate appropriately and reported a fall on 12/26. She denied losing consciousness or hitting her head. UA, chest xr, and head ct unremarkable. Patient reported poor oral intake, weakness likely worsened dehydration. Weakness improved significantly with IV fluids. Patient noted to have shingles to the right neck, started on valacyclovir. Patient also started on antibiotics for cellulitis. Patient was noted to have bacteremia with blood cultures positive for strep agalactiae. Echo negative for endocarditis. Repeat blood cultures remain negative x36 hours. Patient wbc returned to normal and vitals remained stable. On admission patient noted to be hyponatremic likely related to dehydration, improved with iv fluids. Remained asymptomatic. On 12/29/2024 patient complained of hoarseness of voice, Resolved on 01/01/2025. She had no other symptomatology to indicate myasthenia crisis. Remains on pyridostigmine 120 mg q.6 hours. Lipid panel and carotid Doppler unremarkable. Patient evlaluted by neurology and no adjustments required. During patients neurology consult they noted that because of her prior CVA she should be started on aspirin. Aspirin started. Patient to continue following with a specialist at [facility]. During admission patient noted to be constipated. She was given a bowel regimen then started having diarrhea. Prior to discharge patient states bowels have returned to normal. She is tolerating a normal diet and denies any nausea/vomiting or abdominal pain. Patient has no complaints at time of discharge denying any chest pain, shortness a breath, palpitations, nausea/vomiting, abdominal pain, dizziness/lightheadedness. Patient states she feels back to her baseline and is ready for discharge home. Discussed with patient that therapy is recommending outpatient physical therapy to be continued however patient politely refuses stating that she received exercises that she will continue at home on her own. Discussed with patient that if she changes her mind and does wish to pursue outpatient physical therapy this could be ordered by her primary care provider. Patient discharged home in a stable condition. She has a follow-up primary care provider in 1 week. Status at Discharge Functional status at discharge: uses cane/walker Time Spent with Patient Time attestation: Total time spent providing and/or coordinating discharge services: Time spent: Greater than 30 minutes Exam Narrative: AF HR 68 RR 18 Spo2 96 BP 147/55 General: female in no acute respiratory distress who is nontoxic appearing, sitting up in bed. HEENT: Dried/crusted vesicles to the left neck. No pain or redness. Chest: Lungs are clear to auscultation bilaterally. CV: Heart was regular rate and rhythm. Abd: Abdomen was soft. Nontender. Nondistended. Positive bowel sounds. Ext: No clubbing, cyanosis, or edema. DP pulses bilaterally. Neuro: Patient is alert and oriented x4. Speech is clear. DS: Data Data Completed and Pending Completed studies during hospitalization: carotid dopper head ct chest xr Labs on day of discharge: Labs from last 24 hours 01/04/25 12/28/24 04:37 05:03 WBC 6.8 RBC 3.54 L Hgb 11.5 L Hct 34.3 L MCV 96.9 MCH 32.5 MCHC 33.5 RDW 12.5 Plt Count 241 MPV 9.2 Sodium 132 L Potassium 3.6 Chloride 105 Carbon Dioxide 30 Anion Gap -3 L BUN 10 Creatinine 0.74 Estim Creat Clear Calc 37 Estimated GFR > 60 Glucose 81 Serum Osmolality 266 L Calcium 8.8 Total Bilirubin 0.4 AST 42 H ALT 24 Alkaline Phosphatase 68 Total Protein 5.8 L Albumin 3.3 L Preliminary micro results at discharge 12/31/24 15:58 Blood Culture - Preliminary Blood 12/31/24 15:53 Blood Culture - Preliminary Blood Discharge Plan Discharge Attending physician on discharge: Brian Bai Consulting providers: Primitivo Schuster; Courtney Sloan Discharging Clinician: Courtney Sloan Anticipated Discharge Date/Time: 01/04/25 11:56 Patient Disposition: Home Activity: as tolerated Diet: as tolerated and heart healthy Discharge Instructions: Discharge disposition: Patient diagnosed with shingles, blisters have since dried Do not scratch or pick at the blisters Take medications as prescribed Valacyclovir twice a day, course to be completed on 01/06 Attached is information on this medication Patient noted to have a blood stream infection during admission Completed antibiotic course during admission Given prior stroke history patient evaluated by neurology who recommends starting aspirin Monitor blood pressures Take caution while standing, rising, or moving Change positions slowly taking a break between each position change If you standing feel dizzy sit back down and take a break Encouraged to continue with yearly vaccinations Return to the emergency department if he developed sudden shortness of breath, chest pain, nausea, vomiting, upset stomach or intractable diarrhea Return to the emergency department if you develop fever greater than 100.5 Follow-up with the primary care physician within 1-2 weeks Thank you for choosing [facility] for your healthcare needs Patient Instructions: Aspirin (By mouth), Valacyclovir (By mouth), Shingles (DC) Patient Language: Dutch Stand Alone Forms: General Discharge Information Follow-up/Referrals: PHYSICIAN NOT ON STAFF,NONSTAFF [Primary Care Provider] - 1 Week Discharge Medications: New aspirin 81 mg Tablet,Delayed Release (Dr/Ec) 81 mg PO QAM Qty: 30 0RF valacyclovir [Valtrex] 500 mg Tablet 1,000 mg PO Q12HR Qty: 4 0RF Continued atorvastatin 20 mg tablet 20 mg PO DAILY amlodipine 10 mg tablet 10 mg PO DAILY pyridostigmine bromide 60 mg tablet 120 mg PO TID metoprolol tartrate 50 mg tablet 50 mg PO DAILY levetiracetam 750 mg tablet 750 mg PO BID clorazepate dipotassium 7.5 mg tablet 7.5 mg PO TID calcium carbonate-vitamin D3 [Oyster Shell Calcium-Vit D3] 500 mg-10 mcg (400 unit) tablet 1 tablet PO DAILY Allergy Relief (loratadine) 10 mg capsule 10 mg PO DAILY omeprazole 20 mg capsule,delayed release(DR/EC) 20 mg PO DAILY Date of admission: 12/28/24 08:46 Primary Care Provider: PHYSICIAN NOT ON STAFF,NONSTAFF Admitting Provider: Matias Marshall Attending physician on admission: Matias Marshall Condition: Stable Hospitalist MIPS Heart Failure (Exclusion) Patient has history of Heart Transplant or Left Ventricular Assistive Device?: No IF YES, STOP HERE Heart Failure (Qualifier) Patient has current or prior documentation of LVEF less than or equal to 40%, or mod/servere depressed LVSF?: No IF NO, STOP HERE
--- NOTE | 2025-01-07 09:40 | PC.NURSE ---
Blood cx show no growth.
== END 2025-01-04 14:02 | disposition home or self-care (01) | DRG 641 ==
LOC: ANHED 22:35 → ANH2MED 23:12
PROVIDERS: General Practice; Nurse Practitioner; Psychiatry & Neurology Neurology; Admitting Provider Internal Medicine; Emergency Provider Physician Assistant; Visit Provider Student in an Organized Health Care Education/Training Program
DX: E86.0 Dehydration (principal); R78.81 Bacteremia; L03.221 Cellulitis of neck; E87.1 Hypo-osmolality and hyponatremia; B95.4 Other streptococcus as the cause of diseases classified elsewhere; B02.9 Zoster without complications; E78.5 Hyperlipidemia, unspecified; F41.9 Anxiety disorder, unspecified; G70.00 Myasthenia gravis without (acute) exacerbation; G40.909 Epilepsy, unspecified, not intractable, without status epilepticus; H60.12 Cellulitis of left external ear; I10 Essential (primary) hypertension; K59.00 Constipation, unspecified; W19.XXXA Unspecified fall, initial encounter; Z86.73 Personal history of transient ischemic attack (TIA), and cerebral infarction without residual deficits; Z85.3 Personal history of malignant neoplasm of breast; Z79.82 Long term (current) use of aspirin; Z90.49 Acquired absence of other specified parts of digestive tract
CPT/HCPCS: 36415; 70450; 71046; 80048; 80053; 80061; 80177; 81001; 83605; 83735; 83930; 83935; 84145; 84443; 84484; 85025; 85027; 85610; 85730; 87040; 87086; 87186; 87637; 93005; 93306; 93880; 96365; 97110; 97116; 97161; 97166; 97530; 97535; 99285; A9270; G0378; J0690; J0696; J3373; J7030